=== PATIENT | female | born 1975 | race Hispanic/Latino ===

== ENCOUNTER 2024-03-10 21:11 | Inpatient (IN) | payer BC ==
[~2024-03-10] VITALS: Ht 154.9 cm; Wt 82.2 kg
[2024-03-10 21:50] LABS: SARS-CoV-2, RNA, NAAT NEGATIVE SARS CoV-2 (NEGATIVE)
[2024-03-10 21:56] LABS: INFLUENZA TYPE A Negative For Type A (NEGATIVE); INFLUENZA TYPE B Negative For Type B (NEGATIVE)
[2024-03-10] MEDS: [UNRECOGNIZED DRUG - OTHER] IV ONE (22:02)
[2024-03-10 22:11] LABS: BASOPHILS # (AUTO) 0.02 K/uL (0.00-0.20); BASOPHILS % (AUTO) 0.3 % (0.0-5.0); HEMATOCRIT 32.3 % (36-48); IMMATURE GRANULOCYTE ABSOLUTE 0.02 K/uL (0-1); LYMPHOCYTES # (AUTO) 0.6 K/uL (1.0-4.8); LYMPHOCYTES % (AUTO) 8.9 % (21.0-51.0); MEAN CORPUSCULAR HEMOGLOBIN 26.9 pg (27.0-33.0); MEAN CORPUSCULAR VOLUME 86.8 fL (79-99); MONOCYTES # (AUTO) 0.3 K/uL (0.1-1.0); MONOCYTES % (AUTO) 3.7 % (3.0-13.0); NEUTROPHILS # (AUTO) 6.1 K/uL (1.8-7.7); NEUTROPHILS % (AUTO) 86.8 % (40.0-77.0); PLATELET COUNT (AUTO) 206 K/uL (130-400); RED BLOOD CELL COUNT(AUTO) 3.72 MIL/uL (4.00-5.50); RED CELL DISTRIBUTION WIDTH 15.2 % (11.0-15.5); WHITE BLOOD COUNT (AUTO) 7.1 K/uL (4.8-10.8)
[2024-03-10 22:31] LABS: CREATININE 0.8 mg/dL (0.5-1.0); POTASSIUM 3.4 mmol/L (3.5-5.1)
[2024-03-10 22:51] LABS: RAPID GROUP A STREP positive (NEGATIVE)
[2024-03-10] MEDS: AMOX/CLAV 875/125MG TAB PO SCH (23:14)
--- NOTE | 2024-03-10 23:28 | HMCIMG ---
CHEST 1VW HISTORY: Fever COMPARISON: None FINDINGS: A frontal projection of the chest was obtained. There are bilateral pulmonary infiltrates with left pleural effusion. The heart is normal in size. No evidence of aortic calcification is seen. IMPRESSION: 1. Bilateral pulmonary infiltrates with left pleural effusion.
[2024-03-10] MEDS ORDERED: ceFEPime HCL 1 GM VIAL IVPB SCH (23:30)
--- NOTE | 2024-03-10 23:32 | ERN ---
General Chief Complaint: Sore Throat Stated Complaint: C/O SORE THROAT,COUGH,RUNNY NOSE,N X V X DIARRHEA Time Seen by MD: 21:36 History of Present Illness Initial Comments Mrs Ms. Stafford is a very pleasant 48-year-old female significant past medical history of metastatic breast cancer who recently had a cycle of chemo on 03/05/2024. Patient reports since then she has been feeling sore throat kind of cough, runny nose and diarrhea. She has been experiencing this for several days. Patient was feeling pretty weak. Patient was tachypneic and tachycardic. Allergies: Coded Allergies: No Known Drug Allergies (Unverified Allergy, Unknown, 03/10/24) Past Medical History Past Medical History: Diabetes-Type II, Hypertension, Hypothyroid, Other Medical History Other: STAGE 4 BREAST CA TO LEFT SIDE Past Surgical History: Other Surgical History Other: PORTACATH PLACEMENT RT SIDE OF CHEST ROS Dictation Constitutional: Positive for fever, chills Eyes: Negative for injury, pain,redness, and discharge ENT: Negative for injury,pain or swelling Cardiovascular: Negative for chest pain, palpitations, and edema Respiratory: Positive shortness of breath Abdomen/GI: Negative for abdominal pain, nausea, vomiting, diarrhea, and constipation Back: Negative for injury and pain : Negative for injury, bleeding and discharge MS/Extremity: Negative for injury and deformity Skin: Negative for rash, and discoloration Neuro: Negative for headache, weakness, numbness, tingling, and seizure Psych: Negative for suicide ideation, homicidal ideation, and hallucinations Physical Exam Physical Exam Dictation General: Lethargic female Head/Face: Normocephalic, atraumatic Eyes: PERRL, EOMI, vision at baseline ENT: oral cavity clear Neck: Trachea midline, supple Cardiovascular: Tachycardic Respiratory: CTAB, no respiratory distress, No rales or wheezes Abdomen: Soft, non-tender, non-distended, normal bowel sounds Skin: Warm, dry, normal turgor, no rash MS/Extremity: Pulses equal, no cyanosis Neuro: COAx4, GCS 15, strength 5/5 Psych: Normal behavior, mood, and affect normal Results Laboratory and Microbiology Lab and Micro Result Laboratory Tests Test 03/10/24 21:22 03/10/24 22:02 Influenza Type A Antigen Negative For Type A Influenza Type B Antigen Negative For Type B SARS-CoV-2, RNA, NAAT NEGATIVE SARS CoV-2 Group A Streptococcus Rapid positive (NEGATIVE) *A White Blood Count 7.1 K/uL (4.8-10.8) Red Blood Count 3.72 MIL/uL (4.00-5.50) L Hemoglobin 10.0 g/dL (12.0-16.0) L Hematocrit 32.3 % (36-48) L Mean Corpuscular Volume 86.8 fL (79-99) Mean Corpuscular Hemoglobin 26.9 pg (27.0-33.0) L Mean Corpuscular Hemoglobin Concent 31.0 g/dL (32.0-36.0) L Red Cell Distribution Width 15.2 % (11.0-15.5) Platelet Count 206 K/uL (130-400) Mean Platelet Volume 9.8 fL (7.5-10.5) Immature Granulocyte % (Auto) 0.3 % (0-1) Neutrophils (%) (Auto) 86.8 % (40.0-77.0) H Lymphocytes (%) (Auto) 8.9 % (21.0-51.0) L Monocytes (%) (Auto) 3.7 % (3.0-13.0) Eosinophils (%) (Auto) 0.0 % (0.0-8.0) Basophils (%) (Auto) 0.3 % (0.0-5.0) Neutrophils # (Auto) 6.1 K/uL (1.8-7.7) Lymphocytes # (Auto) 0.6 K/uL (1.0-4.8) L Monocytes # (Auto) 0.3 K/uL (0.1-1.0) Eosinophils # (Auto) 0.00 K/uL (0.00-0.70) Basophils # (Auto) 0.02 K/uL (0.00-0.20) Absolute Immature Granulocyte (auto 0.02 K/uL (0-1) Nucleated Red Blood Cells 0.0 % (0.0-0.19) White Cell Morphology Comment See comments Red Blood Cell Morphology See comments Sodium Level 136 mmol/L (136-145) Potassium Level 3.4 mmol/L (3.5-5.1) L Chloride Level 100 mmol/L (101-111) L Carbon Dioxide Level 32 mmol/L (21-32) Blood Urea Nitrogen 9 mg/dL (7-18) Creatinine 0.8 mg/dL (0.5-1.0) Glomerular Filtration Rate Calc 91 mL/min (>90) Random Glucose 136 mg/dL (70-105) H Lactic Acid Level 1.3 mmol/L (0.8-2.5) Total Calcium 8.9 mg/dL (8.5-10.1) Total Creatine Kinase 75 U/L (21-232) Troponin I High Sensitivity 9 ng/L (4-50) MDM Patient appears to be hypoxic and has a left lower lobe pneumonia. Patient will be admitted for further evaluation and care MDM: Differential diagnosis: Acute hypoxic respiratory failure, pneumonia Rationale: Tests considered and ordered secondary to shared decision making include: labs, ECG and radiology Previous outside records reviewed: Old ER visits. Risk of complication and/or morbidity or mortality of patient management: None Medications-Per medication reconciliation Need for hospitalization: Patient does meet criteria for hospitalization. Need for emergency major/minor surgery: No There are no social concerns with this patient. Prescription drug management Prescriptions will include symptomatic care Patient's prior external medical records from other ER visits were reviewed by me as indicated. Prior testing and results from previous visits were reviewed. Prior tests were taken into account with medical decision making and resource utilization, independent historian/historians were used to obtain complete medical history. I independently interpreted the test that were performed, results were reviewed by me and considered findings on radiology if ordered. Medical management and examination interpretation discussions were had by me with other qualified healthcare professionals as indicated for the patient's care. ED Course Orders Procedure Category Date Status Time Covid Rna Naat LAB 03/10/24 Complete 21:20 Influenza Type A & B, LAB 03/10/24 Complete Rapid 21:20 Rapid (Group A Strep) LAB 03/10/24 Complete 21:20 Cbc With Differential LAB 03/10/24 Complete 21:47 Blood Cult SATNAM 03/10/24 In Process 21:47 Urinalysis Profile LAB 03/10/24 Logged 21:47 Culture Urine SATNAM 03/10/24 Logged 21:47 0.9%Nacl 1000ml (Ns PHA 03/10/24 In Process 1000ml) 22:00 Creatine Kinase, Total LAB 03/10/24 Complete 21:47 Troponin I High LAB 03/10/24 Complete Sensitivity 21:47 Lactic Acid LAB 03/10/24 Complete 21:47 Basic Metabolic Panel LAB 03/10/24 Complete 21:47 Amox/Clav 875/125mg PHA 03/10/24 Complete Tab (Augmentin 875-1 23:00 Chest 1vw RAD 03/10/24 Resulted 23:12 Cefepime Hcl 1 Gm PHA 03/10/24 In Process Vial (Maxipime 1 Gm Vi 23:30 Vancomycin 1g/250ml PHA 03/10/24 Complete Kit (Vancomycin 1g/2 23:30 Cefepime Hcl 1 Gm PHA 03/11/24 In Process Vial (Maxipime 1 Gm Vi 00:00 Current Medications Medications (Trade) Dose Ordered Sig/Marisol Route PRN Reason Start Time Stop Time Status Last Admin Dose Admin Amoxicillin/ Clavulanate Potassium (Augmentin 875-125 Tablet) 1 each Q12H PO 03/10/24 23:00 03/10/24 23:25 DC Cefepime HCl (MAXipime 1 GM vial) 1 gm ONCE ONCE IVPB 03/11/24 00:00 03/11/24 00:01 03/10/24 23:50 Cefepime HCl (MAXipime 1 GM vial) 1 gm Q8H IVPB 03/10/24 23:30 03/20/24 23:29 Sodium Chloride 2,421 ml @ 807 mls/hr ONCE ONCE IV 03/10/24 22:00 03/11/24 00:59 03/10/24 22:02 Vancomycin HCl (Vancomycin 1g/ 250ml Kit) 1 gm ONCE ONCE IV 03/10/24 23:30 03/10/24 23:31 DC Vital Signs Date Time Temp Pulse Resp B/P (MAP) Pulse Ox O2 Delivery O2 Flow Rate FiO2 03/10/24 22:08 111 18 133/76 96 Room Air* 0 21 03/10/24 21:14 100.2 115 20 130/79 93 Room Air DX & DISP Disposition: Inpatient Departure Impression: Primary Impression: Pneumonia Condition: Stable Referrals: SELF,REFERRAL (PCP) HINA ANTOINE MD Mar 10, 2024 23:32
[2024-03-10] MEDS: ceFEPime HCL 1 GM VIAL IVPB ONE (23:50)
[2024-03-11] VITALS (12 sets, daily range): BP systolic 110–117; BP diastolic 65–76; PULSE 75–117; RESP 18–21; TEMP 97.8–100.5; O2SAT 86–95
[2024-03-11] MEDS: VANCOMYCIN KIT 1 GM/250 ML IV.KIT IV ONE (00:18)
--- NOTE | 2024-03-11 01:22 | HP ---
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 Patient states her oncologist is Dr. Antonio Sahni at [facility]. Seen and examined patient in the ED awake,alert and coherent,appears comfortable complained of mild shortness of breath .Patient denies chest pain,palpitation and abdominal pain.. Latest vital signs temperature 100.2, heart rate 109, blood pressure 117/57, saturation 91% at 2 L nasal cannula. Labs: WBC 7.1, neutrophils 86.8, hemoglobin 10, hematocrit 32.3, platelet count 206. potassium 3.4, chloride 100, glucose 136, troponin nine. Influenza A & B negative,, SARs COVID negative rapid strep positive. Chest x-ray result revealed bilateral pulmonary infiltrates with left pleural effusion. While in the ER patient received cefepime 1 g IV, vancomycin 1 g IV and fluid re suscitation 30 mL/kilogram over 3 hours. We will admit patient for further medical management. REVIEW OF SYSTEMS CONSTITUTIONAL: Positive chills and generalized weakness Denies fevers, night sweats. No unintentional weight loss reported. NEUROLOGICAL: Denies headache, amaurosis fugax, motor weakness, sensory def icit, vertigo/spinning sensation, gait abnormalities, or tremors. ENT: Positive sore throat No hearing loss, otalgia, otorrhea, rhinitis, rhinorrhea, hoarseness, CARDIOVASCULAR: Denies any exertional angina, dyspnea on exertion, orthopnea, paroxysmal nocturnal dyspnea, palpitations, life-threatening arrhythmias, claudication. PULMONARY: Positive shortness of breath with productive cough Denies hemoptysis, pleuritic chest pain. SLEEP: Denies morning headaches, daytime somnolence or napping. Denies difficulty falling asleep, staying asleep, waking from sleep. Denies knowledge of snoring. GASTROINTESTINAL: Complained of Nausea vomiting and diarrhea Denies any type of dysphagia to either liquids or solids. Denies nausea, vomiting, pyrosis, early satiety, abdominal pain, diarrhea, constipation, or changes in stool consistency or caliber. Denies coffee-ground emesis, hematemesis, hematochezia, or melanotic stools. GENITOURINARY: Denies frequency, urgency, nocturia, hematuria or incontinence (Storage/Irritative symptoms.) Low urinary stream, straining to void, urinary intermittency or hesitancy, splitting of the voiding stream, terminal dribbling. ENDOCRINOLOGIC: Denies polyuria, polydipsia, polyphagia or heat/cold intolerances. HEMATOLOGIC: Denies thrombophilia/previous clots, or coagulopathy/bleeding disorders. ONCOLOGIC: Denies personal history of malignancy. DERMATOLOGIC: Denies rashes or pruritus. PSYCHIATRIC: Denies any suicidal or homicidal ideation. Denies hallucinations. PAST MEDICAL HISTORY: [ metastatic breast cancer (on the 7th cycle of chemo treatment on 03/05/2024) ,hypothyroidism,diabetes not on medication,hypertension and obesity ] PAST SURGICAL HISTORY: [ Port-A-Cath inserted on October 24, 2023 ] PAST SOCIAL HISTORY: [ Patient lives with [place]. 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 Patient denies alcohol tobacco and recreational drug use. ] FAMILY HISTORY: [Noncontributory ] Coded Allergies: No Known Drug Allergies (Unverified Allergy, Unknown, 03/10/24) PHYSICAL EXAM GENERAL APPEARANCE: The patient is awake, alert, and oriented, in no acute cardiopulmonary distress. NEUROLOGICAL: Cranial nerves II-XII grossly intact. Motor is 5/5 in bilateral upper and lower extremities proximal to distal. No sensory deficits. HEENT: Face is symmetric. Pupils are equal and reactive. Extraocular movements are intact. NECK: Supple. No JVD. No thyromegaly. No submental, submandibular, pre- /postauricular, occipital or supraclavicular lymphadenopathy. CHEST: Normal chest expansion. No Telemetry. LUNGS: Tachypneic Absence of any rales, rhonchi or any wheezing. CARDIOVASCULAR: Tachycardic S1 and S2 normal. No appreciable rubs, murmurs or gallops. ABDOMEN: Soft, nontender, and nondistended. There is no rebound, voluntary guarding, or rigidity. : Deferred. No Davis. EXTREMITIES: Non-edematous and not cyanotic. No clubbing. Good capillary refill. SKIN: No skin breakdown. Vital Sign (Last 24 Hours) 03/10/24 03/11/24 21:14 00:47 Temp 100.2 Pulse 109 Resp 20 B/P (MAP) 117/57 Pulse Ox 91 O2 Delivery Nasal Cannula* O2 Flow Rate 2 FiO2 28 LABS: Laboratory: Test 03/10/24 22:02 03/10/24 21:22 Range/Units White Blood Count 7.1 4.8-10.8 K/uL Red Blood Count 3.72 L 4.00-5.50 MIL/uL Hemoglobin 10.0 L 12.0-16.0 g/dL Hematocrit 32.3 L 36-48 % Mean Corpuscular Volume 86.8 79-99 fL Mean Corpuscular Hemoglobin 26.9 L 27.0-33.0 pg Mean Corpuscular Hemoglobin Concent 31.0 L 32.0-36.0 g/dL Red Cell Distribution Width 15.2 11.0-15.5 % Platelet Count 206 130-400 K/uL Mean Platelet Volume 9.8 7.5-10.5 fL Immature Granulocyte % (Auto) 0.3 0-1 % Neutrophils (%) (Auto) 86.8 H 40.0-77.0 % Lymphocytes (%) (Auto) 8.9 L 21.0-51.0 % Monocytes (%) (Auto) 3.7 3.0-13.0 % Eosinophils (%) (Auto) 0.0 0.0-8.0 % Basophils (%) (Auto) 0.3 0.0-5.0 % Neutrophils # (Auto) 6.1 1.8-7.7 K/uL Lymphocytes # (Auto) 0.6 L 1.0-4.8 K/uL Monocytes # (Auto) 0.3 0.1-1.0 K/uL Eosinophils # (Auto) 0.00 0.00-0.70 K/uL Basophils # (Auto) 0.02 0.00-0.20 K/uL Absolute Immature Granulocyte (auto 0.02 0-1 K/uL Nucleated Red Blood Cells 0.0 0.0-0.19 % White Cell Morphology Comment See comments Red Blood Cell Morphology See comments Sodium Level 136 136-145 mmol/L Potassium Level 3.4 L 3.5-5.1 mmol/L Chloride Level 100 L 101-111 mmol/L Carbon Dioxide Level 32 21-32 mmol/L Blood Urea Nitrogen 9 7-18 mg/dL Creatinine 0.8 0.5-1.0 mg/dL Glomerular Filtration Rate Calc 91 >90 mL/min Random Glucose 136 H 70-105 mg/dL Lactic Acid Level 1.3 0.8-2.5 mmol/L Total Calcium 8.9 8.5-10.1 mg/dL Total Creatine Kinase 75 21-232 U/L Troponin I High Sensitivity 9 4-50 ng/L Influenza Type A Antigen Negative For Type A NEGATIVE Influenza Type B Antigen Negative For Type B NEGATIVE SARS-CoV-2, RNA, NAAT NEGATIVE SARS CoV-2 NEGATIVE Group A Streptococcus Rapid positive *A NEGATIVE Current Medications Medications (Trade) Dose Ordered Sig/Marisol Route PRN Reason Start Time Stop Time Status Last Admin Dose Admin Amoxicillin/ Clavulanate Potassium (Augmentin 875-125 Tablet) 1 each Q12H PO 03/10/24 23:00 03/10/24 23:25 DC Cefepime HCl (MAXipime 1 GM vial) 1 gm Q8H IVPB 03/10/24 23:30 03/20/24 23:29 DIAGNOSTICS / RADIOLOGY: [ ] ASSESSMENT: Acute respiratory failure with hypoxia POA Sirs with organ dysfunction POA Suspected pneumonia with left pleural effusion POA Positive strep throat POA Hypokalemia POA Acute anemia POA Hypothyroidism POA Hypertension POA Diabetes POA History of metastatic breast cancer with recent chemotherapy POA PLAN: We will admit patient in PCCU We will start on clear liquid diet/keep NPO We will continue cefepime and vancomycin for broad-spectrum coverage We will start on NS at 100 mL/hour and re-evaluate We will start famotidine 20 mg IV b.i.d. for GI prophylaxis We will replace electrolytes as needed per protocol We will start sliding scale insulin per protocol with hypoglycemia protocol May use oxygen supplementation to keep saturation above 92% May start DuoNeb treatment every 4 hours for shortness of breaths We will seek pulmonology consultation We will check labs in a.m. Further recommendations to follow depending upon hospitalization course ADVANCED CARE PLANNING 1. Which of the following were discussed? Hospice Care - No Therapeutic options - Yes Advance Directives - No Other discussions - 2. Discussed with who? Patient 3. Voluntary nature of this service was explained to the patient? Yes 4. Amount of time spent - _20__ 5. Reviewed by Physician? (if this service was performed by NPP) Yes Patient seen and examined by me. Agree with note by OUTBOUND SALES PROFESSIONAL SEE ADDITIONAL ORDERS PER CHART DISCUSSED WITH NURSING STAFF REG BRINK GROCERY WORKER Mar 11, 2024 01:22
[2024-03-11] MEDS ORDERED: ondanSETRON 4MG INJ IV PRN (03:00)
[2024-03-11] MEDS ORDERED: VANCOMYCIN PROTOCOL PER PHARMACY IV SCH (03:00)
[2024-03-11] MEDS ORDERED: guaiFENesin-DM 200/20MG 10ML PO PRN (03:00)
[2024-03-11] MEDS ORDERED: HYDROcodone/APAP 5/325 1 TAB TABLET PO PRN (03:00)
[2024-03-11] MEDS: VANCOMYCIN 1G/250ML KIT 250 ML IV SCH (03:00)
[2024-03-11] MEDS: ceFEPime HCL 1 GM VIAL IVPB SCH (03:00)
[2024-03-11] MEDS ORDERED: acetaMINOPHEN 325 MG TAB PO PRN (03:00)
[2024-03-11] MEDS: acetaMINOPHEN 325 MG TAB PO PRN (04:16)
[2024-03-11] MEDS ORDERED: LEVO50TA4 PO (04:28)
[2024-03-11 05:28] LABS: BASOPHILS # (AUTO) 0.02 K/uL (0.00-0.20); BASOPHILS % (AUTO) 0.3 % (0.0-5.0); HEMATOCRIT 28.7 % (36-48); IMMATURE GRANULOCYTE ABSOLUTE 0.01 K/uL (0-1); LYMPHOCYTES # (AUTO) 0.5 K/uL (1.0-4.8); LYMPHOCYTES % (AUTO) 7.6 % (21.0-51.0); MEAN CORPUSCULAR HEMOGLOBIN 26.8 pg (27.0-33.0); MEAN CORPUSCULAR VOLUME 86.4 fL (79-99); MONOCYTES # (AUTO) 0.3 K/uL (0.1-1.0); MONOCYTES % (AUTO) 4.8 % (3.0-13.0); NEUTROPHILS % (AUTO) 87.2 % (40.0-77.0); PLATELET COUNT (AUTO) 194 K/uL (130-400); RED BLOOD CELL COUNT(AUTO) 3.32 MIL/uL (4.00-5.50); RED CELL DISTRIBUTION WIDTH 15.2 % (11.0-15.5); WHITE BLOOD COUNT (AUTO) 6.9 K/uL (4.8-10.8)
[2024-03-11 05:50] LABS: ALBUMIN 2.5 g/dL (3.5-5.0); CREATININE 0.8 mg/dL (0.5-1.0); MAGNESIUM 1.5 mg/dL (1.80-2.40); POTASSIUM 3.9 mmol/L (3.5-5.1); TOTAL PROTEIN, SERUM 5.7 g/dL (6.0-8.3)
[2024-03-11 06:07] LABS: HEMOGLOBIN A1C 5.5 % (4.0-6.0)
[2024-03-11] MEDS: IpraTROPium/alBUTERol SULFATE 3 ML SOLUTION IH SCH (06:56)
--- NOTE | 2024-03-11 08:59 | CONS ---
[facility] CONSULTATION NOTE Date Patient Seen: Mar 11, 2024 Time of Visit: 08:49 Supervising Physician: MU URIAS MD Reason for Consultation: [SOB Outpatient Specialists: MD MCMAHAN PROBLEM LIST: Sepsis, present on admission Acute hypoxemic respiratory failure, not home o2 dependent CAP Streptococcus pharyngitis Metastatic Breast CA on Chemotherapy Immunocompromised status DM II HTN Hypothyroidism HPI: This is a case of a48 woman with a past history metastatic breast cancer currently on chemotherapy at [facility] that presented secondary to sore throat, cough chills, subjective fever with nausea vomiting and loose stools over course of the last five days. The patient was become progressively weak and as a result decided to seek further medical care. Patient reports productive cough with green sputum with rhinorrhea. During evaluation she was tachypneic, hypoxic and tachycardic with a white blood cell count that is not elevated due to her immunocompromised state but does have a left shift consistent sepsis. She had a chest x-ray revealing bilateral pulmonary infiltrates and a positive rapid strep test. Our services has been consulted given her hypoxemia shortness of breath and pneumonia. At this time the patient has been started on cefepime and vancomycin. Continues significantly weak. CXR was reviewed in detail and Left lower lobe infiltrate is noted and a sputum culture will be obtained . Given her Elevated wells score of we will proceed with evaluating her for superimposed PE/DVT . PAST MEDICAL HX: see above PAST SURGICAL HX: noncontributory SOCIAL HISTORY: No tobacco, ETOH, or illicit drug use Coded Allergies: No Known Drug Allergies (Unverified Allergy, Unknown, 03/10/24) REVIEW OF SYSTEMS: 12 point ROS reviewed with patient. Pertinent positives mentioned above. Otherwise negative. PHYSICAL EXAM: GENERAL: alert, weak, awake oriented x 3 HEENT: EOMI, Sclera non icteric, moist mucosa NECK: Supple, no JVD, trachea midline LUNGS: fair entry, bibasilar crackles ,no wheezing HEART: Regular rate and rhythm. Normal S1 and S2, without murmurs ABD: Abdomen soft, nontender. Bowel sounds present EXT: No clubbing cyanosis or edema NEURO: Alert and oriented to person, follows commands Vital Signs (last 8hr) Date Time Temp Pulse Resp B/P (MAP) Pulse Ox O2 Delivery O2 Flow Rate FiO2 03/11/24 07:27 100 19 105/65 94 Nasal Cannula* 2 28 03/11/24 07:01 97 20 N/Cannula Low lpm 2.0 03/11/24 06:57 97 20 03/11/24 06:01 99.5 100 23 115/52 93 Nasal Cannula* 2 28 03/11/24 05:21 100.6 10 22 107/59 93 Nasal Cannula* 2 28 03/11/24 04:16 102.9 03/11/24 04:14 102.9 112 22 116/64 92 Nasal Cannula* 2 03/11/24 03:11 117 20 N/Cannula Low lpm 2.0 28 LABS: Hematology Labs: Test 03/11/24 05:21 03/10/24 22:02 Range/Units White Blood Count 6.9 4.8-10.8 K/uL Red Blood Count 3.32 L 4.00-5.50 MIL/uL Hemoglobin 8.9 L 12.0-16.0 g/dL Hematocrit 28.7 L 36-48 % Mean Corpuscular Volume 86.4 79-99 fL Mean Corpuscular Hemoglobin 26.8 L 27.0-33.0 pg Mean Corpuscular Hemoglobin Concent 31.0 L 32.0-36.0 g/dL Red Cell Distribution Width 15.2 11.0-15.5 % Platelet Count 194 130-400 K/uL Mean Platelet Volume 9.6 7.5-10.5 fL Immature Granulocyte % (Auto) 0.1 0-1 % Neutrophils (%) (Auto) 87.2 H 40.0-77.0 % Lymphocytes (%) (Auto) 7.6 L 21.0-51.0 % Monocytes (%) (Auto) 4.8 3.0-13.0 % Eosinophils (%) (Auto) 0.0 0.0-8.0 % Basophils (%) (Auto) 0.3 0.0-5.0 % Neutrophils # (Auto) 6.0 1.8-7.7 K/uL Lymphocytes # (Auto) 0.5 L 1.0-4.8 K/uL Monocytes # (Auto) 0.3 0.1-1.0 K/uL Eosinophils # (Auto) 0.00 0.00-0.70 K/uL Basophils # (Auto) 0.02 0.00-0.20 K/uL Absolute Immature Granulocyte (auto 0.01 0-1 K/uL Nucleated Red Blood Cells 0.0 0.0-0.19 % White Cell Morphology Comment See comments Red Blood Cell Morphology See comments Chemistry Labs: Test 03/11/24 05:21 03/10/24 22:02 Range/Units Sodium Level 138 136-145 mmol/L Potassium Level 3.9 3.5-5.1 mmol/L Chloride Level 103 101-111 mmol/L Carbon Dioxide Level 28 21-32 mmol/L Blood Urea Nitrogen 8 7-18 mg/dL Creatinine 0.8 0.5-1.0 mg/dL Glomerular Filtration Rate Calc 91 >90 mL/min Random Glucose 135 H 70-105 mg/dL Hemoglobin A1c 5.5 4.0-6.0 % Estimated Average Glucose (eAG) 111 70-126 mg/dL Lactic Acid Level 1.2 0.8-2.5 mmol/L Total Calcium 8.5 8.5-10.1 mg/dL Magnesium Level 1.50 L 1.80-2.40 mg/dL Total Bilirubin 1.0 0.2-1.0 mg/dL Aspartate Amino Transf (AST/SGOT) 13 10-37 U/L Alanine Aminotransferase (ALT/SGPT) 15 12-78 U/L Alkaline Phosphatase 98 50-136 U/L Total Protein 5.7 L 6.0-8.3 g/dL Albumin 2.5 L 3.5-5.0 g/dL Procalcitonin 0.76 H 0.05-0.5 ng/mL Total Creatine Kinase 75 21-232 U/L Troponin I High Sensitivity 9 4-50 ng/L DIAGNOSTICS / RADIOLOGY RESULTS: CHEST 1VW HISTORY: Fever COMPARISON: None FINDINGS: A frontal projection of the chest was obtained. There are bilateral pulmonary infiltrates with left pleural effusion. The heart is normal in size. No evidence of aortic calcification is seen. IMPRESSION: 1. Bilateral pulmonary infiltrates with left pleural effusion. PULMONARY PLAN: CTA of chest , Venous doppler Atrovent, Pulmicort, CPT. Aggressive pulmonary toileting Antibiotic therapy with Vanco and Cefepime , obtain Sputum culture CXR in AM/ ABG now on room air Supplemental 02 as needed. Will require home 02 assessment prior to dc Will also obtain an echocardiogram to further asses her LVEF Maintain aspiration precautions at all times ORTHO/REHAB: Continue PT/OT Prophylaxis: Continue GI and DVT prophylaxis Code Status: Full Resuscitation Disposition: per primar team Other: Total patient care time exceeds 35 minutes excluding all procedures. MARILIN RICHARD Mar 11, 2024 08:59
--- NOTE | 2024-03-11 09:37 | HMCIMG ---
US VENOUS DOPPLER BILATERAL HISTORY: DVT COMPARISON: None TECHNIQUE: Bilateral lower extremity venous Doppler ultrasound study was performed. FINDINGS: The common femoral, femoral, popliteal, and posterior tibial veins are visualized. Normal flow with augmentation and compressibilities are demonstrated. The greater saphenous veins are also seen and grossly patent. IMPRESSION: 1. No evidence of deep venous thrombosis is seen.
[2024-03-11] MEDS: FAMOTIDINE 20MG TAB PO SCH (09:42)
[2024-03-11] MEDS: ENOXAPARIN SODIUM 40 MG/0.4 ML SYRINGE SQ SCH (09:42)
[2024-03-11] MEDS ORDERED: IOHEXOL-350 75 ML VIAL IV ONE ×3 (10:21→13:26)
[2024-03-11] MEDS: BUDESONIDE 0.5 MG/2 ML INH IH SCH (11:45)
[2024-03-11] MEDS: IpraTROPium 0.5 MG/2.5 ML INH IH SCH (11:45)
[2024-03-11] MEDS: SODIUM CHLORIDE 3% FOR INHALATION 4 ML/AMP VIAL.NEB IH ONE (11:57)
--- NOTE | 2024-03-11 14:17 | HMCIMG ---
CT CHEST PE PROTOCOL WWO CONT HISTORY: No additional history given. COMPARISON: None TECHNIQUE: CT angiography of the chest was performed. The study was performed using angiographic technique with maximum intensity projection reconstruction images. Patient was given 150 cc of Omnipaque through intravenous route. FINDINGS: No CT evidence of filling defect is seen to suggest pulmonary embolus. No CT evidence of aortic dissection is seen. There are bilateral pulmonary infiltrates with subsegmental atelectasis. Superimposed lung nodule cannot be excluded. Follow-up examination is recommended. There are borderline mediastinal adenopathy. No CT evidence of pleural effusion or pericardial effusion is seen. The heart is enlarged. No evidence of adrenal mass is seen. Degenerative changes of the spine are noted. IMPRESSION: 1. No CT evidence of acute pulmonary embolus is seen. There are bilateral pulmonary infiltrates with subsegmental atelectasis. Superimposed lung nodule cannot be excluded. Follow-up examination is recommended. There are borderline mediastinal adenopathy. CT was performed with one or more following dose reduction techniques: automated exposure control, adjustment of the mA and kv according to patient's size, or use of a iterative reconstruction technique.
[2024-03-11] MEDS ORDERED: VANCOMYCIN 1.25 GM/250 ML BAG 250 ML IV SCH (15:00)
[2024-03-11 20:58] LABS: APPEARANCE,URINE CLEAR (CLEAR); BILIRUBIN,URINE NEGATIVE (NEGATIVE); COLOR,URINE LIGHT-YELLOW (YELLOW); GLUCOSE, URINE (UA) NEGATIVE (NEGATIVE); KETONES,URINE NEGATIVE (NEGATIVE); LEUKOCYTE ESTERASE ,URINE 25 Leu/uL (NEGATIVE); NITRATE,URINE NEGATIVE (NEGATIVE); OCCULT BLOOD,URINE NEGATIVE (NEGATIVE); PROTEIN,URINE NEGATIVE (NEGATIVE); UROBILINOGEN,URINE 0.2 mg/dL (0.2-1.0)
[2024-03-11 21:02] LABS: ADD UA MICROSCOPIC YES
[2024-03-11 21:12] LABS: RBC,URINE 0-1 /HPF (0-1); SQUAMOUS EPITHELIAL CELL,UR RARE /HPF (0-2)
[2024-03-12] VITALS (12 sets, daily range): BP systolic 108–119; BP diastolic 65–72; PULSE 95–106; RESP 18–22; TEMP 98.1–98.9; O2SAT 92–98
[2024-03-12] MEDS ORDERED: MAGNESIUM 2GM PREMIX 50ML 50 ML IV PRN (03:30)
[2024-03-12 04:45] LABS: HEMATOCRIT 26.8 % (36-48); MEAN CORPUSCULAR VOLUME 87.3 fL (79-99); RED BLOOD CELL COUNT(AUTO) 3.07 MIL/uL (4.00-5.50); RED CELL DISTRIBUTION WIDTH 15.1 % (11.0-15.5); WHITE BLOOD COUNT (AUTO) 10.5 K/uL (4.8-10.8)
[2024-03-12 04:57] LABS: CREATININE 0.7 mg/dL (0.5-1.0)
--- NOTE | 2024-03-12 09:48 | PN ---
[facility] PROGRESS NOTE Date of Service: Mar 12, 2024 Time of Service: 09:35 SUBJECTIVE: [ 48-year-old female admitted for shortness of breaths secondary to pneumonia. Patient was hypoxic when she arrived in the ED. She is currently on 2 L via nasal cannula with saturation at 91%. Patient is immunocompromised due to history of breast cancer to the left side and currently on chemotherapy. We have consulted hopper operator and Infectious Disease for further recommendations. Patient was evaluated in room 331, she is currently afebrile. Labs reviewed. CT chest was negative for PE but noted bilateral pulmonary infiltrates superimposed lung nodule can not be excluded. Chest x-ray did show bilateral pulmonary infiltrates with left pleural effusion. We will continue to follow recommendations from hopper operator. ] REVIEW OF SYSTEMS CONSTITUTIONAL: Positive chills and generalized weakness Denies fevers, night sweats. No unintentional weight loss reported. NEUROLOGICAL: Denies headache, amaurosis fugax, motor weakness, sensory deficit, vertigo/spinning sensation, gait abnormalities, or tremors. ENT: Positive sore throat No hearing loss, otalgia, otorrhea, rhinitis, rhinorrhea, hoarseness, CARDIOVASCULAR: Denies any exertional angina, dyspnea on exertion, orthopnea, paroxysmal nocturnal dyspnea, palpitations, life-threatening arrhythmias, claudication. PULMONARY: Positive shortness of breath with productive cough Denies hemoptysis, pleuritic chest pain. SLEEP: Denies morning headaches, daytime somnolence or napping. Denies difficulty falling asleep, staying asleep, waking from sleep. Denies knowledge of snoring. GASTROINTESTINAL: Complained of Nausea vomiting and diarrhea Denies any type of dysphagia to either liquids or solids. Denies nausea, vomiting, pyrosis, early satiety, abdominal pain, diarrhea, constipation, or changes in stool consistency or caliber. Denies coffee-ground emesis, hematemesis, hematochezia, or melanotic stools. GENITOURINARY: Denies frequency, urgency, nocturia, hematuria or incontinence (Storage/Irritative symptoms.) Low urinary stream, straining to void, urinary intermittency or hesitancy, splitting of the voiding stream, terminal dribbling. ENDOCRINOLOGIC: Denies polyuria, polydipsia, polyphagia or heat/cold intolerances. HEMATOLOGIC: Denies thrombophilia/previous clots, or coagulopathy/bleeding disorders. ONCOLOGIC: Denies personal history of malignancy. DERMATOLOGIC: Denies rashes or pruritus. PSYCHIATRIC: Denies any suicidal or homicidal ideation. Denies hallucinations. PHYSICAL EXAM GENERAL APPEARANCE: The patient is awake, alert, and oriented, in no acute cardiopulmonary distress. NEUROLOGICAL: Cranial nerves II-XII grossly intact. Motor is 5/5 in bilateral upper and lower extremities proximal to distal. No sensory deficits. HEENT: Face is symmetric. Pupils are equal and reactive. Extraocular movements are intact. NECK: Supple. No JVD. No thyromegaly. No submental, submandibular, pre- /postauricular, occipital or supraclavicular lymphadenopathy. CHEST: Normal chest expansion. No Telemetry. LUNGS: Tachypneic Absence of any rales, rhonchi or any wheezing. CARDIOVASCULAR: Tachycardic S1 and S2 normal. No appreciable rubs, murmurs or gallops. ABDOMEN: Soft, nontender, and nondistended. There is no rebound, voluntary guarding, or rigidity. : Deferred. No Davis. EXTREMITIES: Non-edematous and not cyanotic. No clubbing. Good capillary refill. SKIN: No skin breakdown. Vital Signs (last 8hr) Date Time Temp Pulse Resp B/P (MAP) Pulse Ox O2 Delivery O2 Flow Rate FiO2 03/12/24 08:00 98.1 102 20 119/65 92 Nasal Cannula 2.0 03/12/24 07:35 106 20 N/Cannula Low lpm 2.0 28 03/12/24 07:21 104 20 03/12/24 04:02 98.8 99 18 112/71 95 Nasal Cannula 1.0 LABS: Laboratory: Test 03/12/24 04:35 03/11/24 20:32 03/11/24 05:21 03/10/24 22:02 Range/Units White Blood Count 10.5 # 4.8-10.8 K/uL Red Blood Count 3.07 L 4.00-5.50 MIL/uL Hemoglobin 8.3 L 12.0-16.0 g/dL Hematocrit 26.8 L 36-48 % Mean Corpuscular Volume 87.3 79-99 fL Mean Corpuscular Hemoglobin 27.0 27.0-33.0 pg Mean Corpuscular Hemoglobin Concent 31.0 L 32.0-36.0 g/dL Red Cell Distribution Width 15.1 11.0-15.5 % Platelet Count 187 130-400 K/uL Mean Platelet Volume 9.6 7.5-10.5 fL Nucleated Red Blood Cells 0.0 0.0-0.19 % Sodium Level 140 136-145 mmol/L Potassium Level 4.0 3.5-5.1 mmol/L Chloride Level 104 101-111 mmol/L Carbon Dioxide Level 30 21-32 mmol/L Blood Urea Nitrogen 6 L 7-18 mg/dL Creatinine 0.7 0.5-1.0 mg/dL Glomerular Filtration Rate Calc 107 >90 mL/min Random Glucose 99 70-105 mg/dL Total Calcium 8.8 8.5-10.1 mg/dL Urine Color LIGHT-YELLOW YELLOW Urine Appearance CLEAR CLEAR Urine pH 6.0 5.0-8.0 Urine Specific [place] 1.034 H 1.001-1.031 Urine Protein NEGATIVE NEGATIVE mg/dL Urine Glucose (UA) NEGATIVE NEGATIVE mg/dL Urine Ketones NEGATIVE NEGATIVE mg/dL Urine Occult Blood NEGATIVE NEGATIVE Urine Nitrate NEGATIVE NEGATIVE Urine Bilirubin NEGATIVE NEGATIVE mg/dL Urine Urobilinogen 0.2 0.2-1.0 mg/dL Urine Leukocyte Esterase 25 H NEGATIVE Deshaun/uL Urine RBC 0-1 0-1 /HPF Urine WBC 2-5 H 0-1 /HPF Urine Squamous Epithelial Cells RARE 0-2 /HPF Urine Bacteria None None Seen /HPF Immature Granulocyte % (Auto) 0.1 0-1 % Neutrophils (%) (Auto) 87.2 H 40.0-77.0 % Lymphocytes (%) (Auto) 7.6 L 21.0-51.0 % Monocytes (%) (Auto) 4.8 3.0-13.0 % Eosinophils (%) (Auto) 0.0 0.0-8.0 % Basophils (%) (Auto) 0.3 0.0-5.0 % Neutrophils # (Auto) 6.0 1.8-7.7 K/uL Lymphocytes # (Auto) 0.5 L 1.0-4.8 K/uL Monocytes # (Auto) 0.3 0.1-1.0 K/uL Eosinophils # (Auto) 0.00 0.00-0.70 K/uL Basophils # (Auto) 0.02 0.00-0.20 K/uL Absolute Immature Granulocyte (auto 0.01 0-1 K/uL Hemoglobin A1c 5.5 4.0-6.0 % Estimated Average Glucose (eAG) 111 70-126 mg/dL Lactic Acid Level 1.2 0.8-2.5 mmol/L Magnesium Level 1.50 L 1.80-2.40 mg/dL Total Bilirubin 1.0 0.2-1.0 mg/dL Aspartate Amino Transf (AST/SGOT) 13 10-37 U/L Alanine Aminotransferase (ALT/SGPT) 15 12-78 U/L Alkaline Phosphatase 98 50-136 U/L Total Protein 5.7 L 6.0-8.3 g/dL Albumin 2.5 L 3.5-5.0 g/dL Procalcitonin 0.76 H 0.05-0.5 ng/mL White Cell Morphology Comment See comments Red Blood Cell Morphology See comments Total Creatine Kinase 75 21-232 U/L Troponin I High Sensitivity 9 4-50 ng/L Test 03/10/24 21:22 Range/Units Influenza Type A Antigen Negative For Type A NEGATIVE Influenza Type B Antigen Negative For Type B NEGATIVE SARS-CoV-2, RNA, NAAT NEGATIVE SARS CoV-2 NEGATIVE Group A Streptococcus Rapid positive *A NEGATIVE Current Medications Medications (Trade) Dose Ordered Sig/Marisol Route PRN Reason Start Time Stop Time Status Last Admin Dose Admin Acetaminophen (TYLenol 325MG TAB) 650 mg Q4H PRN PO MILD PAIN (1-3) 03/11/24 03:00 04/10/24 02:59 Acetaminophen (TYLenol 325MG TAB) 650 mg Q6H PRN PO TEMPERATURE GREATER THAN 101.5 03/11/24 03:00 04/10/24 02:59 03/11/24 04:16 650 MG Acetaminophen/ Hydrocodone Bitart (NORco 5/325MG) 1 tab Q4H PRN PO MODERATE PAIN (4-6) 03/11/24 03:00 03/16/24 02:59 Albuterol (DUOneb) 1 udvial [id number] IH 03/11/24 06:00 03/11/24 09:24 DC 03/11/24 06:56 1 UDVIAL Amoxicillin/ Clavulanate Potassium (Augmentin 875-125 Tablet) 1 each Q12H PO 03/10/24 23:00 03/10/24 23:25 DC Budesonide (Pulmicort 0.5 Mg/2ml) 0.5 mg BID IH 03/11/24 09:00 04/10/24 08:59 03/12/24 07:21 0.5 MG Cefepime HCl (MAXipime 1 GM vial) 1 gm Q8H IVPB 03/10/24 23:30 03/11/24 02:56 DC Cefepime HCl (MAXipime 1 GM vial) 1 gm Q8H IVPB 03/11/24 03:00 03/21/24 02:59 03/12/24 03:37 1 GM Enoxaparin Sodium (Lovenox) 40 mg DAILY SQ 03/11/24 09:00 04/10/24 08:59 03/12/24 09:08 40 MG Famotidine (Pepcid 20mg Tab) 20 mg BID PO 03/11/24 09:00 04/10/24 08:59 03/12/24 09:08 20 MG Guaifenesin/ Dextromethorphan (RobiTUSSin DM 200/20MG 10ML) 10 ml Q4H PRN PO COUGH 03/11/24 03:00 04/10/24 02:59 Ipratropium [place] (AtrovENT UD) 0.5 mg Q6H IH 03/11/24 09:00 04/10/24 08:59 03/12/24 07:21 0.5 MG Magnesium Sulfate 50 ml @ 0 mls/hr PROTOCOL PRN IV MAGNESIUM PROTOCOL 03/12/24 03:30 04/11/24 03:29 Ondansetron HCl (zoFRAN 4MG INJ) 4 mg Q6H PRN IV NAUSEA/VOMITING 03/11/24 03:00 04/10/24 02:59 Vancomycin HCl 250 ml @ 125 mls/hr ONCE IV 03/11/24 03:00 03/11/24 04:59 DC Vancomycin HCl 250 ml @ 125 mls/hr Q12H IV 03/11/24 15:00 03/11/24 09:07 DC Vancomycin HCl (Vancomycin Protocol) 1 each AD IV 03/11/24 03:00 03/11/24 03:09 DC DIAGNOSTICS / RADIOLOGY: [ ] ASSESSMENT: Acute respiratory failure with hypoxia POA Sirs with organ dysfunction POA Suspected pneumonia with left pleural effusion POA Positive strep throat POA Hypokalemia POA Acute anemia POA Hypothyroidism POA Hypertension POA Diabetes POA History of metastatic breast cancer with recent chemotherapy POA PLAN: Patient will continued to be admitted with telemetry Patient will continue with clear liquid diet We will continue cefepime and vancomycin for broad-spectrum coverage, we will await for further recommendations from ID Continue with gentle IV fluid hydration We will continue with famotidine 20 mg IV b.i.d. for GI prophylaxis We will continue to replace electrolytes as needed per protocol We continue sliding scale insulin per protocol with hypoglycemia protocol Continue oxygen supplementation to keep saturation above 92% Continue DuoNeb treatment every 4 hours for shortness of breaths Appreciate hopper operator recommendation We will check labs in a.m. Case was seen and examined with Dr. Tripathi, above plan was formulated Further recommendations to follow depending upon hospitalization course ATTESTATION BY PHYSICIAN I have seen and examined the patient. I reviewed the documentation, medical decision making, and treatment plan as noted by the mid-level provider above. I agree with the findings and plan of care. MALACHI TRIPATHI MD, [facility] Mar 12, 2024 09:48
--- NOTE | 2024-03-12 18:18 | PN ---
[facility] PROGRESS NOTE Date Patient Seen: Mar 12, 2024 Time of Visit: 11:30 Supervising Physician: MIN CHEATHAM MD Outpatient Specialists: MD MCMAHAN PROBLEM LIST: Sepsis, present on admission Acute hypoxemic respiratory failure, not home o2 dependent Streptoccocal Bilateral Multifocal Pneumonia Streptococcus pharyngitis Metastatic Breast CA on Chemotherapy Immunocompromised status DM II HTN Hypothyroidism INTERVAL HISTORY: Patient seen and examined at the bedside, she is a 48 year old lady admitted due to severe multifocal Pneumonia, currently on antibiotic she remains on room air, not in distress, denies fevers or chills, Vancomycin has been stopped already she continues on Cefepime and Doxyciline Positive for Strep. REVIEW OF SYSTEMS: 12 point ROS reviewed with patient. Pertinent positives mentioned above. Otherwise negative. PHYSICAL EXAM: GENERAL: alert, weak, awake oriented x 3 HEENT: EOMI, Sclera non icteric, moist mucosa NECK: Supple, no JVD, trachea midline LUNGS: fair entry, bibasilar crackles ,no wheezing HEART: Regular rate and rhythm. Normal S1 and S2, without murmurs ABD: Abdomen soft, nontender. Bowel sounds present EXT: No clubbing cyanosis or edema NEURO: Alert and oriented to person, follows commands Vital Signs (last 8hr) Date Time Temp Pulse Resp B/P (MAP) Pulse Ox O2 Delivery O2 Flow Rate FiO2 03/12/24 16:00 98.2 95 18 117/72 97 Nasal Cannula 24 03/12/24 12:07 98.2 96 18 115/71 92 Room Air 21 LABS: Hematology Labs: Test 03/12/24 04:35 03/11/24 05:21 03/10/24 22:02 Range/Units White Blood Count 10.5 # 4.8-10.8 K/uL Red Blood Count 3.07 L 4.00-5.50 MIL/uL Hemoglobin 8.3 L 12.0-16.0 g/dL Hematocrit 26.8 L 36-48 % Mean Corpuscular Volume 87.3 79-99 fL Mean Corpuscular Hemoglobin 27.0 27.0-33.0 pg Mean Corpuscular Hemoglobin Concent 31.0 L 32.0-36.0 g/dL Red Cell Distribution Width 15.1 11.0-15.5 % Platelet Count 187 130-400 K/uL Mean Platelet Volume 9.6 7.5-10.5 fL Nucleated Red Blood Cells 0.0 0.0-0.19 % Immature Granulocyte % (Auto) 0.1 0-1 % Neutrophils (%) (Auto) 87.2 H 40.0-77.0 % Lymphocytes (%) (Auto) 7.6 L 21.0-51.0 % Monocytes (%) (Auto) 4.8 3.0-13.0 % Eosinophils (%) (Auto) 0.0 0.0-8.0 % Basophils (%) (Auto) 0.3 0.0-5.0 % Neutrophils # (Auto) 6.0 1.8-7.7 K/uL Lymphocytes # (Auto) 0.5 L 1.0-4.8 K/uL Monocytes # (Auto) 0.3 0.1-1.0 K/uL Eosinophils # (Auto) 0.00 0.00-0.70 K/uL Basophils # (Auto) 0.02 0.00-0.20 K/uL Absolute Immature Granulocyte (auto 0.01 0-1 K/uL White Cell Morphology Comment See comments Red Blood Cell Morphology See comments Chemistry Labs: Test 03/12/24 04:35 03/11/24 05:21 03/10/24 22:02 Range/Units Sodium Level 140 136-145 mmol/L Potassium Level 4.0 3.5-5.1 mmol/L Chloride Level 104 101-111 mmol/L Carbon Dioxide Level 30 21-32 mmol/L Blood Urea Nitrogen 6 L 7-18 mg/dL Creatinine 0.7 0.5-1.0 mg/dL Glomerular Filtration Rate Calc 107 >90 mL/min Random Glucose 99 70-105 mg/dL Total Calcium 8.8 8.5-10.1 mg/dL Hemoglobin A1c 5.5 4.0-6.0 % Estimated Average Glucose (eAG) 111 70-126 mg/dL Lactic Acid Level 1.2 0.8-2.5 mmol/L Magnesium Level 1.50 L 1.80-2.40 mg/dL Total Bilirubin 1.0 0.2-1.0 mg/dL Aspartate Amino Transf (AST/SGOT) 13 10-37 U/L Alanine Aminotransferase (ALT/SGPT) 15 12-78 U/L Alkaline Phosphatase 98 50-136 U/L Total Protein 5.7 L 6.0-8.3 g/dL Albumin 2.5 L 3.5-5.0 g/dL Procalcitonin 0.76 H 0.05-0.5 ng/mL Total Creatine Kinase 75 21-232 U/L Troponin I High Sensitivity 9 4-50 ng/L DIAGNOSTICS / RADIOLOGY RESULTS: [ ] PULMONARY PLAN: CTA of chest , Venous doppler Atrovent, Pulmicort, CPT. Aggressive pulmonary toileting Antibiotic therapy with Vanco and Cefepime , obtain Sputum culture CXR in AM/ ABG now on room air Supplemental 02 as needed. Will require home 02 assessment prior to dc Will also obtain an echocardiogram to further asses her LVEF Maintain aspiration precautions at all times ORTHO/REHAB: Continue PT/OT Prophylaxis: Continue GI and DVT prophylaxis Code Status: Full Resuscitation Disposition: per primar team Other: Total patient care time exceeds 35 minutes excluding all procedures. ATTESTATION BY PHYSICIAN Documentation assistance provided by a scribe, information recorded by the scribe was done at my direction and has been reviewed and validated by me." LINDEN COPELAND MD I personally scribed for LINDEN COPELAND MD ([email or web address]) on 03/12/24 at 18:18. Electronically submitted by Darling Ledesma ([id number]). LINDEN COPELAND MD Mar 12, 2024 18:18
[2024-03-12] MEDS: BUDESONIDE 0.5 MG/2 ML INH IH SCH (19:00)
[2024-03-12] MEDS: IpraTROPium 0.5 MG/2.5 ML INH IH SCH (19:00)
[2024-03-12] MEDS: DOXYCYCLINE HYCLATE 100 MG TABLET PO SCH (21:18)
[2024-03-13] VITALS (14 sets, daily range): BP systolic 105–122; BP diastolic 56–82; PULSE 88–104; RESP 17–20; TEMP 97.9–99.1; O2SAT 88–96
[2024-03-13 05:39] LABS: HEMATOCRIT 26.9 % (36-48); MEAN CORPUSCULAR HEMOGLOBIN 26.7 pg (27.0-33.0); MEAN CORPUSCULAR HGB CONC 31.2 g/dL (32.0-36.0); MEAN CORPUSCULAR VOLUME 85.4 fL (79-99); NUCLEATED RED BLOOD CELLS 0.2 % (0.0-0.19); RED BLOOD CELL COUNT(AUTO) 3.15 MIL/uL (4.00-5.50); RED CELL DISTRIBUTION WIDTH 15.4 % (11.0-15.5); WHITE BLOOD COUNT (AUTO) 13.2 K/uL (4.8-10.8)
[2024-03-13 05:45] LABS: CREATININE 0.7 mg/dL (0.5-1.0); POTASSIUM 3.3 mmol/L (3.5-5.1)
--- NOTE | 2024-03-13 06:14 | CONS ---
DATE OF SERVICE: 03/12/2024 INFECTIOUS DISEASE CONSULTATION NOTE REQUESTING PHYSICIAN: Maria Ines Elias NP REASON FOR CONSULTATION: Pneumonia, on antibiotic management. HISTORY OF PRESENT ILLNESS: The patient is an unfortunate 48-year-old female with metastatic left breast cancer who presented to the hospital with fever, cough and shortness of breath. The patient's symptoms started five days prior to presentation. T-max on admission was 102.9. The patient had cough productive of yellowish sputum. No hemoptysis. The patient also had some nausea, vomiting, but no diarrhea or abdominal pain. The patient had CT angiogram of chest done, which shows no evidence of pulmonary embolism, but showed bilateral infiltrate. The patient has been started on cefepime. The patient is on oral chemotherapy and follows up with Oncology at [facility]. No dysuria or hematuria. PAST MEDICAL HISTORY: * Metastatic left breast cancer. * Hypothyroidism. * Diabetes mellitus. * Obesity. PAST SURGICAL HISTORY: * Port-A-Cath placement. * Left breast biopsy. ALLERGIES: No known drug allergy. CURRENT MEDICATIONS: Reviewed. SOCIAL HISTORY: No alcohol, tobacco or illicit drug use. FAMILY HISTORY: Positive for diabetes mellitus. REVIEW OF SYSTEMS: CONSTITUTIONAL: Positive for fever and chills. No weight loss or night sweats. EYES: No eye pain. No photophobia or diplopia. HENT: No sore throat. No rhinorrhea or earache. NECK: No neck pain or neck swelling. RESPIRATORY: Positive for cough. No hemoptysis or pleuritic pain. CARDIOVASCULAR: No chest pain. No palpitations or orthopnea. GASTROINTESTINAL: No nausea, vomiting or diarrhea. GENITOURINARY: No dysuria, urgency or urinary frequency. CENTRAL NERVOUS SYSTEM: No headache, dyspnea, or slurred speech. PSYCHIATRY: No depression. No suicidal ideation. MUSCULOSKELETAL: No joint pain or joint swelling. PHYSICAL EXAMINATION: GENERAL: Young female, awake. VITAL SIGNS: Temperature 98.1, pulse 102, respiratory rate 20, BP 119/65. EYES: No icterus. Pupils are equal and reactive. HENT: No oral thrush seen. Moist oral mucosa. NECK: Supple. No JVD or thyromegaly. LUNGS: Crackles bilaterally. No rhonchi. CARDIOVASCULAR: S1, S2 regular, tachycardic. No murmur heard. ABDOMEN: Obese. Soft. Nontender. Bowel sound is present. CENTRAL NERVOUS SYSTEM: Awake, alert, oriented x 3. No focal deficits. SKIN: No rashes. No itchiness. MUSCULOSKELETAL: No joint swelling, erythema or tenderness. BACK: No deformity. No pressure ulcer. LABORATORY DATA: Sodium 140, potassium 4.0, BUN 6, creatinine 0.7. WBC 10.5, hemoglobin 8.3, platelet 187. Urinalysis negative. Rapid group A strep positive. Sputum culture, no growth. Blood culture, no growth for one day. RADIOLOGY: CT angiogram of chest shows no evidence of pulmonary embolism. ASSESSMENT: A 48-year-old female presenting with cough and fever. CURRENT PROBLEMS: Include: * Sepsis. * Hypoxic respiratory failure. * Metastatic breast cancer. * Underlying immunosuppression. * Multifocal pneumonia. * Anemia. PLAN: * Continue cefepime. * Start the patient on doxycycline. * Follow up culture. * Continue pain management. * Continue antihypertensive. * Continue nutritional support. * Monitor renal function. * The patient will be followed up closely. Thank you for allowing me to participate in the care of this patient. TID: [id number] RECEIPT: [id number]
--- NOTE | 2024-03-13 11:09 | PN ---
[facility] PROGRESS NOTE Date of Service: Mar 13, 2024 Time of Service: 11:05 SUBJECTIVE: [ 48-year-old female admitted for shortness of breaths secondary to pneumonia. Patient was hypoxic when she arrived in the ED. She is currently on 2 L via nasal cannula with saturation at 91%. Patient is immunocompromised due to history of breast cancer to the left side and currently on chemotherapy. We have consulted chemical plant operator supervisor and Infectious Disease for further recommendations. Patient was evaluated in room 331, she is currently afebrile. Patient is saturating 91% on room air at this time, we will continue to monitor closely and tried to titrate and wean off oxygen as tolerated. Continue to follow recommendations from ID and chemical plant operator supervisor. She is afebrile. Labs reviewed. REVIEW OF SYSTEMS CONSTITUTIONAL: Positive chills and generalized weakness Denies fevers, night sweats. No unintentional weight loss reported. NEUROLOGICAL: Denies headache, amaurosis fugax, motor weakness, sensory deficit, vertigo/spinning sensation, gait abnormalities, or tremors. ENT: Positive sore throat No hearing loss, otalgia, otorrhea, rhinitis, rhinorrhea, hoarseness, CARDIOVASCULAR: Denies any exertional angina, dyspnea on exertion, orthopnea, paroxysmal nocturnal dyspnea, palpitations, life-threatening arrhythmias, claudication. PULMONARY: Positive shortness of breath with productive cough Denies hemoptysis, pleuritic chest pain. SLEEP: Denies morning headaches, daytime somnolence or napping. Denies difficulty falling asleep, staying asleep, waking from sleep. Denies knowledge of snoring. GASTROINTESTINAL: Complained of Nausea vomiting and diarrhea Denies any type of dysphagia to either liquids or solids. Denies nausea, vomiting, pyrosis, early satiety, abdominal pain, diarrhea, constipation, or changes in stool consistency or caliber. Denies coffee-ground emesis, hematemesis, hematochezia, or melanotic stools. GENITOURINARY: Denies frequency, urgency, nocturia, hematuria or incontinence (Storage/Irritative symptoms.) Low urinary stream, straining to void, urinary intermittency or hesitancy, splitting of the voiding stream, terminal dribbling. ENDOCRINOLOGIC: Denies polyuria, polydipsia, polyphagia or heat/cold intolerances. HEMATOLOGIC: Denies thrombophilia/previous clots, or coagulopathy/bleeding disorders. ONCOLOGIC: Denies personal history of malignancy. DERMATOLOGIC: Denies rashes or pruritus. PSYCHIATRIC: Denies any suicidal or homicidal ideation. Denies hallucinations. PHYSICAL EXAM GENERAL APPEARANCE: The patient is awake, alert, and oriented, in no acute cardiopulmonary distress. NEUROLOGICAL: Cranial nerves II-XII grossly intact. Motor is 5/5 in bilateral upper and lower extremities proximal to distal. No sensory deficits. HEENT: Face is symmetric. Pupils are equal and reactive. Extraocular movements are intact. NECK: Supple. No JVD. No thyromegaly. No submental, submandibular, pre- /postauricular, occipital or supraclavicular lymphadenopathy. CHEST: Normal chest expansion. No Telemetry. LUNGS: Tachypneic Absence of any rales, rhonchi or any wheezing. CARDIOVASCULAR: Tachycardic S1 and S2 normal. No appreciable rubs, murmurs or gallops. ABDOMEN: Soft, nontender, and nondistended. There is no rebound, voluntary guarding, or rigidity. : Deferred. No Davis. EXTREMITIES: Non-edematous and not cyanotic. No clubbing. Good capillary refill. SKIN: No skin breakdown. Vital Signs (last 8hr) Date Time Temp Pulse Resp B/P (MAP) Pulse Ox O2 Delivery O2 Flow Rate FiO2 03/13/24 08:00 98.4 95 20 105/60 92 Room Air 21 03/13/24 08:00 92 Room Air* 0 21 03/13/24 06:57 99 20 N/Cannula Low lpm 2.0 28 03/13/24 06:56 92 20 03/13/24 04:17 99.1 94 17 119/82 94 Nasal Cannula 1.0 LABS: Laboratory: Test 03/13/24 04:59 03/11/24 20:32 Range/Units White Blood Count 13.2 H 4.8-10.8 K/uL Red Blood Count 3.15 L 4.00-5.50 MIL/uL Hemoglobin 8.4 L 12.0-16.0 g/dL Hematocrit 26.9 L 36-48 % Mean Corpuscular Volume 85.4 79-99 fL Mean Corpuscular Hemoglobin 26.7 L 27.0-33.0 pg Mean Corpuscular Hemoglobin Concent 31.2 L 32.0-36.0 g/dL Red Cell Distribution Width 15.4 11.0-15.5 % Platelet Count 271 # 130-400 K/uL Mean Platelet Volume 10.0 7.5-10.5 fL Nucleated Red Blood Cells 0.2 H 0.0-0.19 % Sodium Level 139 136-145 mmol/L Potassium Level 3.3 L 3.5-5.1 mmol/L Chloride Level 104 101-111 mmol/L Carbon Dioxide Level 29 21-32 mmol/L Blood Urea Nitrogen 6 L 7-18 mg/dL Creatinine 0.7 0.5-1.0 mg/dL Glomerular Filtration Rate Calc 107 >90 mL/min Random Glucose 119 H 70-105 mg/dL Total Calcium 8.7 8.5-10.1 mg/dL Urine Color LIGHT-YELLOW YELLOW Urine Appearance CLEAR CLEAR Urine pH 6.0 5.0-8.0 Urine Specific [place] 1.034 H 1.001-1.031 Urine Protein NEGATIVE NEGATIVE mg/dL Urine Glucose (UA) NEGATIVE NEGATIVE mg/dL Urine Ketones NEGATIVE NEGATIVE mg/dL Urine Occult Blood NEGATIVE NEGATIVE Urine Nitrate NEGATIVE NEGATIVE Urine Bilirubin NEGATIVE NEGATIVE mg/dL Urine Urobilinogen 0.2 0.2-1.0 mg/dL Urine Leukocyte Esterase 25 H NEGATIVE Deshaun/uL Urine RBC 0-1 0-1 /HPF Urine WBC 2-5 H 0-1 /HPF Urine Squamous Epithelial Cells RARE 0-2 /HPF Urine Bacteria None None Seen /HPF Current Medications Medications (Trade) Dose Ordered Sig/Marisol Route PRN Reason Start Time Stop Time Status Last Admin Dose Admin Acetaminophen (TYLenol 325MG TAB) 650 mg Q4H PRN PO MILD PAIN (1-3) 03/11/24 03:00 04/10/24 02:59 Acetaminophen (TYLenol 325MG TAB) 650 mg Q6H PRN PO TEMPERATURE GREATER THAN 101.5 03/11/24 03:00 04/10/24 02:59 03/11/24 04:16 650 MG Acetaminophen/ Hydrocodone Bitart (NORco 5/325MG) 1 tab Q4H PRN PO MODERATE PAIN (4-6) 03/11/24 03:00 03/16/24 02:59 Albuterol (DUOneb) 1 udvial [id number] IH 03/11/24 06:00 03/11/24 09:24 DC 03/11/24 06:56 1 UDVIAL Amoxicillin/ Clavulanate Potassium (Augmentin 875-125 Tablet) 1 each Q12H PO 03/10/24 23:00 03/10/24 23:25 DC Budesonide (Pulmicort 0.5 Mg/2ml) 0.5 mg BID IH 03/11/24 09:00 03/12/24 11:57 DC 03/12/24 07:21 0.5 MG Budesonide (Pulmicort 0.5 Mg/2ml) 0.5 mg BIDRESP IH 03/12/24 18:00 04/10/24 08:59 03/13/24 06:55 0.5 MG Cefepime HCl (MAXipime 1 GM vial) 1 gm Q8H IVPB 03/10/24 23:30 03/11/24 02:56 DC Cefepime HCl (MAXipime 1 GM vial) 1 gm Q8H IVPB 03/11/24 03:00 03/21/24 02:59 03/13/24 03:01 1 GM Doxycycline Hyclate (Doxycycline Hyclate) 100 mg BID PO 03/12/24 21:00 03/22/24 20:59 03/13/24 08:49 100 MG Enoxaparin Sodium (Lovenox) 40 mg DAILY SQ 03/11/24 09:00 04/10/24 08:59 03/13/24 08:52 40 MG Famotidine (Pepcid 20mg Tab) 20 mg BID PO 03/11/24 09:00 04/10/24 08:59 03/13/24 08:49 20 MG Guaifenesin/ Dextromethorphan (RobiTUSSin DM 200/20MG 10ML) 10 ml Q4H PRN PO COUGH 03/11/24 03:00 04/10/24 02:59 Ipratropium [place] (AtrovENT UD) 0.5 mg Q6H IH 03/11/24 09:00 03/12/24 11:54 DC 03/12/24 11:49 0.5 MG Ipratropium [place] (AtrovENT UD) 0.5 mg Q1TMVDC IH 03/12/24 18:00 04/10/24 08:59 03/13/24 06:55 0.5 MG Levothyroxine Sodium (SYNTHroid 50MCG TAB) 50 mcg SYN PO 03/14/24 06:30 04/13/24 06:29 Magnesium Sulfate 50 ml @ 0 mls/hr PROTOCOL PRN IV MAGNESIUM PROTOCOL 03/12/24 03:30 04/11/24 03:29 Ondansetron HCl (zoFRAN 4MG INJ) 4 mg Q6H PRN IV NAUSEA/VOMITING 03/11/24 03:00 04/10/24 02:59 Vancomycin HCl 250 ml @ 125 mls/hr ONCE IV 03/11/24 03:00 03/11/24 04:59 DC Vancomycin HCl 250 ml @ 125 mls/hr Q12H IV 03/11/24 15:00 03/11/24 09:07 DC Vancomycin HCl (Vancomycin Protocol) 1 each AD IV 03/11/24 03:00 03/11/24 03:09 DC DIAGNOSTICS / RADIOLOGY: [ ] ASSESSMENT: Acute respiratory failure with hypoxia POA Sirs with organ dysfunction POA Suspected pneumonia with left pleural effusion POA Positive strep throat POA Hypokalemia POA Acute anemia POA Hypothyroidism POA Hypertension POA Diabetes POA History of metastatic breast cancer with recent chemotherapy POA PLAN: Patient will continued to be admitted with telemetry Patient will continue current diet, so far tolerated Appreciate recommendations from Infectious Disease, continue with cefepime and doxycycline Continue with gentle IV fluid hydration We will continue with famotidine 20 mg IV b.i.d. for GI prophylaxis We will continue to replace electrolytes as needed per protocol We continue sliding scale insulin per protocol with hypoglycemia protocol Continue oxygen supplementation to keep saturation above 92% Continue DuoNeb treatment every 4 hours for shortness of breaths Appreciate chemical plant operator supervisor recommendation We will see if patient tolerates to get O2 weaned off We will check labs in a.m. Case was seen and examined with Dr. Tripathi, above plan was formulated Further recommendations to follow depending upon hospitalization course ATTESTATION BY PHYSICIAN I have seen and examined the patient. I reviewed the documentation, medical decision making, and treatment plan as noted by the mid-level provider above. I agree with the findings and plan of care. MALACHI TRIPATHI MD, JANICE B AGPCNP Mar 13, 2024 11:09
--- NOTE | 2024-03-13 14:52 | PN ---
INFECTIOUS DISEASE PROGRESS NOTE Date of Service: Mar 13, 2024 SUBJECTIVE: Patient was seen and examined at bedside in room 331. Patient is awake, alert and oriented x3. Patient continues on oxygen support via nasal cannula at 2 liters/minute. No reports of fever, temperature is 98.4. There was a slight trending up of the WBC to 13.2 this morning. Patient's rapid streptococcus was positive. We will follow up on the sputum cultures. Continues on cefepime IV and doxycycline p.o. We will continue to monitor patient's care. PHYSICAL EXAM EYES: Anicteric. Pupils equal and reactive. HENT: No oral thrush seen, moist Oral mucosa. NECK: Supple, no JVD or thyromegaly. LUNGS: Good air entry. No rales, no rhonchi. Oxygen via nasal cannula CARDIOVASCULAR: S1, S2 regular. No murmur heard. ABDOMEN: Soft, non tender, bowel sounds present, no organomegaly. CENTRAL NERVOUS SYSTEM: Awake, alert, oriented x 3. SKIN: No rashes, no swelling. LYMPHATICS: No peripheral lymphadenopathy. MUSCULOSKELETAL: No joint swelling, erythema or tenderness. EXTREMITIES: No cyanosis or clubbing. BACK: No deformity, no pressure ulcer. GENITOURINARY: No dysuria or hematuria. Vital Sign (Last 12 Hours) 03/13/24 03/13/24 03/13/24 03/13/24 04:17 06:56 06:57 08:00 Temp 99.1 Pulse 94 92 99 Resp 17 20 20 B/P (MAP) 119/82 Pulse Ox 94 92 O2 Delivery Nasal Cannula N/Cannula Low lpm Room Air* O2 Flow Rate 1.0 2.0 0 FiO2 28 21 03/13/24 03/13/24 03/13/24 03/13/24 08:00 11:00 11:17 11:53 Temp 98.4 98.2 Pulse 95 91 88 96 90 Resp 20 18 20 18 18 B/P (MAP) 105/60 110/56 Pulse Ox 92 90 O2 Delivery Room Air Room Air FiO2 21 21 21 21 Intake & Output (last 24hrs) 03/12/24 03/12/24 03/13/24 15:00 23:00 07:00 Intake Total 360 ml 240 ml Balance 360 ml 240 ml LABS: Laboratory: Test 03/13/24 04:59 11/6/24 20:32 Range/Units White Blood Count 13.2 H 4.8-10.8 K/uL Red Blood Count 3.15 L 4.00-5.50 MIL/uL Hemoglobin 8.4 L 12.0-16.0 g/dL Hematocrit 26.9 L 36-48 % Mean Corpuscular Volume 85.4 79-99 fL Mean Corpuscular Hemoglobin 26.7 L 27.0-33.0 pg Mean Corpuscular Hemoglobin Concent 31.2 L 32.0-36.0 g/dL Red Cell Distribution Width 15.4 11.0-15.5 % Platelet Count 271 # 130-400 K/uL Mean Platelet Volume 10.0 7.5-10.5 fL Nucleated Red Blood Cells 0.2 H 0.0-0.19 % Sodium Level 139 136-145 mmol/L Potassium Level 3.3 L 3.5-5.1 mmol/L Chloride Level 104 101-111 mmol/L Carbon Dioxide Level 29 21-32 mmol/L Blood Urea Nitrogen 6 L 7-18 mg/dL Creatinine 0.7 0.5-1.0 mg/dL Glomerular Filtration Rate Calc 107 >90 mL/min Random Glucose 119 H 70-105 mg/dL Total Calcium 8.7 8.5-10.1 mg/dL Urine Color LIGHT-YELLOW YELLOW Urine Appearance CLEAR CLEAR Urine pH 6.0 5.0-8.0 Urine Specific [place] 1.034 H 1.001-1.031 Urine Protein NEGATIVE NEGATIVE mg/dL Urine Glucose (UA) NEGATIVE NEGATIVE mg/dL Urine Ketones NEGATIVE NEGATIVE mg/dL Urine Occult Blood NEGATIVE NEGATIVE Urine Nitrate NEGATIVE NEGATIVE Urine Bilirubin NEGATIVE NEGATIVE mg/dL Urine Urobilinogen 0.2 0.2-1.0 mg/dL Urine Leukocyte Esterase 25 H NEGATIVE Deshaun/uL Urine RBC 0-1 0-1 /HPF Urine WBC 2-5 H 0-1 /HPF Urine Squamous Epithelial Cells RARE 0-2 /HPF Urine Bacteria None None Seen /HPF ASSESSMENT: Hypoxic history failure, requiring oxygen support. Moderate multifocal pneumonia. Sepsis. Urinary tract infection. Streptococcus infection. Metastatic breast cancer. Underlying immune suppression. Anemia PLAN: Continue cefepime. Continue doxycycline. Continue GI prophylaxis. Continue oxygen support. Continue bronchodilators. We will follow up on the cultures. Continue pain management. We will monitor electrolytes. This case was reviewed and discussed with my supervising physician and the above assessment and plan was formulated and agreed upon. ATTESTATION BY PHYSICIAN I have seen and examined the patient. I reviewed the documentation, medical decision making, and treatment plan as noted by the mid-level provider above. I agree with the findings and plan of care. JANENE BOTELLO MD, [facility] Mar 13, 2024 14:52
[2024-03-13] MEDS ORDERED: PoTASSium chloRIDE 20MEQ/100ML 100 ML IV PRN (18:00)
[2024-03-13] MEDS ORDERED: PoTASSium chl 10% ELIXIR 20MEQ 20 MEQ/15 ML UDCUP PO PRN (18:00)
[2024-03-13] MEDS: PoTASSium chloRIDE 20MEQ ER 20 MEQ ERTAB PO PRN (18:06)
--- NOTE | 2024-03-13 19:09 | PN ---
[facility] PROGRESS NOTE Date Patient Seen: Mar 13, 2024 Time of Visit: 19:04 Supervising Physician: LINDEN COPELAND MD Outpatient Specialists: MD MCMAHAN PROBLEM LIST: Acute sepsis on admission without septic shock Bilateral community acquired pneumonia with Streptococcus bacteria Streptococcus pharyngitis Immunocompromised status on admission Metastatic breast cancer on active chemotherapy Hypertension Type 2 diabetes mellitus Morbid obesity, BMI 43.2 Hypothyroidism Adult failure to thrive INTERVAL HISTORY: Ms. Stafford is seen and evaluated She is on 3 liters O2 via nasal canula Very weak, pale and short of breath Has dry cough, still with poor appetite She is very talkative and in good spirits No fevers No chills No nausea or vomiting REVIEW OF SYSTEMS: 12 point ROS reviewed with patient. Pertinent positives mentioned above. Otherwise negative. PHYSICAL EXAM: GENERAL: alert, weak, awake oriented x 3 HEENT: EOMI, Sclera non icteric, moist mucosa NECK: Supple, no JVD, trachea midline LUNGS: no wheezing, no crackles, no rhonchi HEART: Regular rate and rhythm. Normal S1 and S2, without murmurs ABD: Abdomen soft, nontender. Bowel sounds present EXT: No clubbing cyanosis or edema NEURO: Alert and oriented to person, follows commands Vital Signs (last 8hr) Date Time Temp Pulse Resp B/P (MAP) Pulse Ox O2 Delivery O2 Flow Rate FiO2 03/13/24 18:30 98 20 N/Cannula Low lpm 3.0 32 03/13/24 18:29 89 20 03/13/24 16:00 97.9 93 20 108/60 98 Nasal Cannula 3.0 28 03/13/24 11:53 96 18 21 90 18 21 03/13/24 11:17 88 20 LABS: Hematology Labs: Test 03/13/24 04:59 Range/Units White Blood Count 13.2 H 4.8-10.8 K/uL Red Blood Count 3.15 L 4.00-5.50 MIL/uL Hemoglobin 8.4 L 12.0-16.0 g/dL Hematocrit 26.9 L 36-48 % Mean Corpuscular Volume 85.4 79-99 fL Mean Corpuscular Hemoglobin 26.7 L 27.0-33.0 pg Mean Corpuscular Hemoglobin Concent 31.2 L 32.0-36.0 g/dL Red Cell Distribution Width 15.4 11.0-15.5 % Platelet Count 271 # 130-400 K/uL Mean Platelet Volume 10.0 7.5-10.5 fL Nucleated Red Blood Cells 0.2 H 0.0-0.19 % Chemistry Labs: Test 03/13/24 04:59 Range/Units Sodium Level 139 136-145 mmol/L Potassium Level 3.3 L 3.5-5.1 mmol/L Chloride Level 104 101-111 mmol/L Carbon Dioxide Level 29 21-32 mmol/L Blood Urea Nitrogen 6 L 7-18 mg/dL Creatinine 0.7 0.5-1.0 mg/dL Glomerular Filtration Rate Calc 107 >90 mL/min Random Glucose 119 H 70-105 mg/dL Total Calcium 8.7 8.5-10.1 mg/dL DIAGNOSTICS / RADIOLOGY RESULTS: [ Chest x-ray reviewed at bedside with nurse ] PULMONARY PLAN: Get a chest x-ray in the morning continue with O2 and maintain saturation at 88% or higher Incentive spirometry continue on IV antibiotics continue on airborne isolation nutritional support ORTHO/REHAB: Continue PT/OT as tolerated Prophylaxis: Continue GI and DVT prophylaxis Code Status: Full Resuscitation Disposition: per primar team Other: Total patient care time exceeds 35 minutes excluding all procedures. ATTESTATION BY PHYSICIAN The note above was scribed by Eusebio Broderick BSc and I attest to the clnical accuracy of the information included in this note Linden Copeland MD I personally scribed for LINDEN COPELAND MD ([email or web address]) on 03/13/24 at 19:09. Electronically submitted by Eusebio Broderick ([email or web address]). LINDEN COPELAND MD Mar 13, 2024 19:09
[2024-03-13 22:09] LABS: MYCOPLASMA AB IGM <770 U/mL (0-769)
[2024-03-14] VITALS (15 sets, daily range): BP systolic 110–129; BP diastolic 57–76; PULSE 82–106; RESP 18–20; TEMP 98.1–99.2; O2SAT 88–99
[2024-03-14 03:55] LABS: HEMATOCRIT 27.5 % (36-48); MEAN CORPUSCULAR HEMOGLOBIN 27.2 pg (27.0-33.0); MEAN CORPUSCULAR HGB CONC 31.3 g/dL (32.0-36.0); NUCLEATED RED BLOOD CELLS 0.2 % (0.0-0.19); RED BLOOD CELL COUNT(AUTO) 3.16 MIL/uL (4.00-5.50); RED CELL DISTRIBUTION WIDTH 15.1 % (11.0-15.5); WHITE BLOOD COUNT (AUTO) 16.8 K/uL (4.8-10.8)
[2024-03-14 04:11] LABS: ALBUMIN 2.2 g/dL (3.5-5.0); BILIRUBIN,TOTAL 0.5 mg/dL (0.2-1.0); CREATININE 0.6 mg/dL (0.5-1.0); POTASSIUM 3.9 mmol/L (3.5-5.1); TOTAL PROTEIN, SERUM 5.7 g/dL (6.0-8.3)
[2024-03-14] MEDS: levoTHYROxine 50 MCG TABLET PO SCH (05:49)
--- NOTE | 2024-03-14 09:20 | HMCIMG ---
CHEST 1VW HISTORY: Cough COMPARISON: None FINDINGS: A frontal projection of the chest was obtained. Bilateral pulmonary infiltrates are seen. Left pleural effusion is seen. The heart is borderline enlarged. Degenerative changes are seen. No evidence of aortic calcification is seen. IMPRESSION: 1. Bilateral pulmonary infiltrates.
--- NOTE | 2024-03-14 12:22 | PN ---
[facility] PROGRESS NOTE Date of Service: Mar 14, 2024 Time of Service: 12:17 SUBJECTIVE: [ 48-year-old female admitted for shortness of breaths secondary to pneumonia. Patient was hypoxic when she arrived in the ED. She is currently on 2 L via nasal cannula with saturation at 91%. Patient is immunocompromised due to history of breast cancer to the left side and currently on chemotherapy. We have consulted rocket [employer]ellant [employer] supervisor and Infectious Disease for further recommendations. Patient was evaluated in room 331, she is currently afebrile. Patient is saturating 93% on 3LNC. We will continue to titrate. She had a 6 minute walk for which she was noted with acute respiratory failure with saturation 88% on room air. Patient's x-ray showed bilateral pulmonary infiltrates we will continue with current IV antibiotics. Patient is afebrile. REVIEW OF SYSTEMS CONSTITUTIONAL: Positive chills and generalized weakness Denies fevers, night sweats. No unintentional weight loss reported. NEUROLOGICAL: Denies headache, amaurosis fugax, motor weakness, sensory deficit, vertigo/spinning sensation, gait abnormalities, or tremors. ENT: Positive sore throat No hearing loss, otalgia, otorrhea, rhinitis, rhinorrhea, hoarseness, CARDIOVASCULAR: Denies any exertional angina, dyspnea on exertion, orthopnea, paroxysmal nocturnal dyspnea, palpitations, life-threatening arrhythmias, claudication. PULMONARY: Positive shortness of breath with productive cough Denies hemoptysis, pleuritic chest pain. SLEEP: Denies morning headaches, daytime somnolence or napping. Denies difficulty falling asleep, staying asleep, waking from sleep. Denies knowledge of snoring. GASTROINTESTINAL: Complained of Nausea vomiting and diarrhea Denies any type of dysphagia to either liquids or solids. Denies nausea, vomiting, pyrosis, early satiety, abdominal pain, diarrhea, constipation, or changes in stool consistency or caliber. Denies coffee-ground emesis, hematemesis, hematochezia, or melanotic stools. GENITOURINARY: Denies frequency, urgency, nocturia, hematuria or incontinence (Storage/Irritative symptoms.) Low urinary stream, straining to void, urinary intermittency or hesitancy, splitting of the voiding stream, terminal dribbling. ENDOCRINOLOGIC: Denies polyuria, polydipsia, polyphagia or heat/cold intoleran alley. HEMATOLOGIC: Denies thrombophilia/previous clots, or coagulopathy/bleeding disorders. ONCOLOGIC: Denies personal history of malignancy. DERMATOLOGIC: Denies rashes or pruritus. PSYCHIATRIC: Denies any suicidal or homicidal ideation. Denies hallucinations. PHYSICAL EXAM GENERAL APPEARANCE: The patient is awake, alert, and oriented, in no acute cardiopulmonary distress. NEUROLOGICAL: Cranial nerves II-XII grossly intact. Motor is 5/5 in bilateral upper and lower extremities proximal to distal. No sensory deficits. HEENT: Face is symmetric. Pupils are equal and reactive. Extraocular movements are intact. NECK: Supple. No JVD. No thyromegaly. No submental, submandibular, pre- /postauricular, occipital or supraclavicular lymphadenopathy. CHEST: Normal chest expansion. No Telemetry. LUNGS: Tachypneic Absence of any rales, rhonchi or any wheezing. CARDIOVASCULAR: Tachycardic S1 and S2 normal. No appreciable rubs, murmurs or gallops. ABDOMEN: Soft, nontender, and nondistended. There is no rebound, voluntary guarding, or rigidity. : Deferred. No Davis. EXTREMITIES: Non-edematous and not cyanotic. No clubbing. Good capillary refi ll. SKIN: No skin breakdown. Vital Signs (last 8hr) Date Time Temp Pulse Resp B/P (MAP) Pulse Ox O2 Delivery O2 Flow Rate FiO2 03/14/24 11:54 86 20 03/14/24 11:54 86 20 N/Cannula Low lpm 3.0 32 03/14/24 08:10 95 Nasal Cannula* 3 32 03/14/24 08:00 98.1 82 18 114/71 95 Nasal Cannula 3.0 28 03/14/24 06:38 86 20 03/14/24 06:37 86 20 N/Cannula Low lpm 3.0 32 LABS: Laboratory: Test 03/14/24 03:30 Range/Units White Blood Count 16.8 #H 4.8-10.8 K/uL Red Blood Count 3.16 L 4.00-5.50 MIL/uL Hemoglobin 8.6 L 12.0-16.0 g/dL Hematocrit 27.5 L 36-48 % Mean Corpuscular Volume 87.0 79-99 fL Mean Corpuscular Hemoglobin 27.2 27.0-33.0 pg Mean Corpuscular Hemoglobin Concent 31.3 L 32.0-36.0 g/dL Red Cell Distribution Width 15.1 11.0-15.5 % Platelet Count 279 130-400 K/uL Mean Platelet Volume 9.6 7.5-10.5 fL Nucleated Red Blood Cells 0.2 H 0.0-0.19 % Sodium Level 137 136-145 mmol/L Potassium Level 3.9 3.5-5.1 mmol/L Chloride Level 103 101-111 mmol/L Carbon Dioxide Level 27 21-32 mmol/L Blood Urea Nitrogen 7 7-18 mg/dL Creatinine 0.6 0.5-1.0 mg/dL Glomerular Filtration Rate Calc 111 >90 mL/min Random Glucose 115 H 70-105 mg/dL Total Calcium 8.5 8.5-10.1 mg/dL Total Bilirubin 0.5 0.2-1.0 mg/dL Aspartate Amino Transf (AST/SGOT) 12 10-37 U/L Alanine Aminotransferase (ALT/SGPT) 15 12-78 U/L Alkaline Phosphatase 98 50-136 U/L Total Protein 5.7 L 6.0-8.3 g/dL Albumin 2.2 L 3.5-5.0 g/dL Procalcitonin 0.25 0.05-0.5 ng/mL Current Medications Medications (Trade) Dose Ordered Sig/Marisol Route PRN Reason Start Time Stop Time Status Last Admin Dose Admin Acetaminophen (TYLenol 325MG TAB) 650 mg Q4H PRN PO MILD PAIN (1-3) 03/11/24 03:00 04/10/24 02:59 Acetaminophen (TYLenol 325MG TAB) 650 mg Q6H PRN PO TEMPERATURE GREATER THAN 101.5 03/11/24 03:00 04/10/24 02:59 03/11/24 04:16 650 MG Acetaminophen/ Hydrocodone Bitart (NORco 5/325MG) 1 tab Q4H PRN PO MODERATE PAIN (4-6) 03/11/24 03:00 03/16/24 02:59 Albuterol (DUOneb) 1 udvial [id number] IH 03/11/24 06:00 03/11/24 09:24 DC 03/11/24 06:56 1 UDVIAL Amoxicillin/ Clavulanate Potassium (Augmentin 875-125 Tablet) 1 each Q12H PO 03/10/24 23:00 03/10/24 23:25 DC Budesonide (Pulmicort 0.5 Mg/2ml) 0.5 mg BID IH 03/11/24 09:00 03/12/24 11:57 DC 03/12/24 07:21 0.5 MG Budesonide (Pulmicort 0.5 Mg/2ml) 0.5 mg BIDRESP IH 03/12/24 18:00 04/10/24 08:59 03/14/24 06:36 0.5 MG Cefepime HCl (MAXipime 1 GM vial) 1 gm Q8H IVPB 03/10/24 23:30 03/11/24 02:56 DC Cefepime HCl (MAXipime 1 GM vial) 1 gm Q8H IVPB 03/11/24 03:00 03/21/24 02:59 03/14/24 11:59 1 GM Doxycycline Hyclate (Doxycycline Hyclate) 100 mg BID PO 03/12/24 21:00 03/22/24 20:59 03/14/24 09:28 100 MG Enoxaparin Sodium (Lovenox) 40 mg DAILY SQ 03/11/24 09:00 04/10/24 08:59 03/14/24 09:29 40 MG Famotidine (Pepcid 20mg Tab) 20 mg BID PO 03/11/24 09:00 04/10/24 08:59 03/14/24 09:28 20 MG Guaifenesin/ Dextromethorphan (RobiTUSSin DM 200/20MG 10ML) 10 ml Q4H PRN PO COUGH 03/11/24 03:00 04/10/24 02:59 Ipratropium [place] (AtrovENT UD) 0.5 mg Q6H IH 03/11/24 09:00 03/12/24 11:54 DC 03/12/24 11:49 0.5 MG Ipratropium [place] (AtrovENT UD) 0.5 mg [id number] IH 03/12/24 18:00 04/10/24 08:59 03/14/24 11:52 0.5 MG Levothyroxine Sodium (SYNTHroid 50MCG TAB) 50 mcg SYN PO 03/14/24 06:30 04/13/24 06:29 03/14/24 05:49 50 MCG Magnesium Sulfate 50 ml @ 0 mls/hr PROTOCOL PRN IV MAGNESIUM PROTOCOL 03/12/24 03:30 04/11/24 03:29 Ondansetron HCl (zoFRAN 4MG INJ) 4 mg Q6H PRN IV NAUSEA/VOMITING 03/11/24 03:00 04/10/24 02:59 Potassium Chloride 100 ml @ 100 mls/hr AD PRN IV POTASSIUM PROTOCOL 03/13/24 18:00 04/12/24 17:59 Potassium Chloride (K-Dur/Klor-Con 20meq) 20 meq AD PRN PO POTASSIUM PROTOCOL 03/13/24 18:00 04/12/24 17:59 03/13/24 23:17 20 MEQ Potassium Chloride (KCl 10% Elixir 20meq/15ml) 20 meq AD PRN PO POTASSIUM PROTOCOL 03/13/24 18:00 04/12/24 17:59 Vancomycin HCl 250 ml @ 125 mls/hr ONCE IV 03/11/24 03:00 03/11/24 04:59 DC Vancomycin HCl 250 ml @ 125 mls/hr Q12H IV 03/11/24 15:00 03/11/24 09:07 DC Vancomycin HCl (Vancomycin Protocol) 1 each AD IV 03/11/24 03:00 03/11/24 03:09 DC DIAGNOSTICS / RADIOLOGY: [ ] ASSESSMENT: Acute respiratory failure with hypoxia POA Sirs with organ dysfunction POA Suspected pneumonia with left pleural effusion POA Positive strep throat POA Hypokalemia POA Acute anemia POA Hypothyroidism POA Hypertension POA Diabetes POA History of metastatic breast cancer with recent chemotherapy POA PLAN: Patient will continued to be admitted with telemetry Patient will continue current diet, so far tolerated Appreciate recommendations from Infectious Disease, continue with cefepime and doxycycline We will DC anbtx C/w oxygen supplementation, keep O2 sat 92%, will try to titrate and wean her off oxygen We will continue with famotidine 20 mg IV b.i.d. for GI prophylaxis We will continue to replace electrolytes as needed per protocol We continue sliding scale insulin per protocol with hypoglycemia protocol Continue oxygen supplementation to keep saturation above 92% Continue DuoNeb treatment every 4 hours for shortness of breaths Appreciate [employer] supervisor recommendation We will see if patient tolerates to get O2 weaned off We will check labs in a.m. Case was seen and examined with Dr. Tripathi, above plan was formulated Further recommendations to follow depending upon hospitalization course ATTESTATION BY PHYSICIAN I have seen and examined the patient. I reviewed the documentation, medical decision making, and treatment plan as noted by the mid-level provider above. I agree with the findings and plan of care. MALACHI TRIPATHI MD, [facility] Mar 14, 2024 12:22
--- NOTE | 2024-03-14 14:26 | PN ---
INFECTIOUS DISEASE PROGRESS NOTE Date of Service: Mar 14, 2024 SUBJECTIVE: This 48 year old female patient is being seen today at bedside. She has no fever or chills. no nausea or vomiting. She denies pain at this time. She is seating in bed, on o2 via nasal canula. Patient remains on antibiotics with WBC 16.8 noted this morning. Denies any abdominal. No dysuria or hematuria. No overnight events are being reported over night. Family at bedside. PHYSICAL EXAM EYES: Anicteric. Pupils equal and reactive. HENT: No oral thrush seen, moist Oral mucosa. NECK: Supple, no JVD or thyromegaly. LUNGS: Good air entry. No rales, no rhonchi. Oxygen via nasal cannula CARDIOVASCULAR: S1, S2 regular. No murmur heard. ABDOMEN: Soft, non tender, bowel sounds present, no organomegaly. CENTRAL NERVOUS SYSTEM: Awake, alert, oriented x 3. SKIN: No rashes, no swelling. LYMPHATICS: No peripheral lymphadenopathy. MUSCULOSKELETAL: No joint swelling, erythema or tenderness. EXTREMITIES: No cyanosis or clubbing. BACK: No deformity, no pressure ulcer. GENITOURINARY: No dysuria or hematuria. Vital Sign (Last 12 Hours) 03/14/24 03/14/24 03/14/24 03/14/24 04:00 06:37 06:38 08:00 Temp 99.1 98.1 Pulse 106 86 86 82 Resp 19 20 20 18 B/P (MAP) 129/76 114/71 Pulse Ox 93 95 O2 Delivery Nasal Cannula N/Cannula Low lpm Nasal Cannula O2 Flow Rate 3.0 3.0 3.0 FiO2 32 28 03/14/24 03/14/24 03/14/24 03/14/24 08:10 11:54 11:54 12:00 Temp 98.4 Pulse 86 86 96 Resp 20 20 18 B/P (MAP) 125/66 Pulse Ox 95 94 O2 Delivery Nasal Cannula* N/Cannula Low lpm Nasal Cannula O2 Flow Rate 3 3.0 2.0 FiO2 32 32 24 Intake & Output (last 24hrs) 03/13/24 03/13/24 03/14/24 15:00 23:00 07:00 Intake Total 600 ml 50.0 ml Balance 600 ml 50.0 ml LABS: Laboratory: Test 03/14/24 03:30 Range/Units White Blood Count 16.8 #H 4.8-10.8 K/uL Red Blood Count 3.16 L 4.00-5.50 MIL/uL Hemoglobin 8.6 L 12.0-16.0 g/dL Hematocrit 27.5 L 36-48 % Mean Corpuscular Volume 87.0 79-99 fL Mean Corpuscular Hemoglobin 27.2 27.0-33.0 pg Mean Corpuscular Hemoglobin Concent 31.3 L 32.0-36.0 g/dL Red Cell Distribution Width 15.1 11.0-15.5 % Platelet Count 279 130-400 K/uL Mean Platelet Volume 9.6 7.5-10.5 fL Nucleated Red Blood Cells 0.2 H 0.0-0.19 % Sodium Level 137 136-145 mmol/L Potassium Level 3.9 3.5-5.1 mmol/L Chloride Level 103 101-111 mmol/L Carbon Dioxide Level 27 21-32 mmol/L Blood Urea Nitrogen 7 7-18 mg/dL Creatinine 0.6 0.5-1.0 mg/dL Glomerular Filtration Rate Calc 111 >90 mL/min Random Glucose 115 H 70-105 mg/dL Total Calcium 8.5 8.5-10.1 mg/dL Total Bilirubin 0.5 0.2-1.0 mg/dL Aspartate Amino Transf (AST/SGOT) 12 10-37 U/L Alanine Aminotransferase (ALT/SGPT) 15 12-78 U/L Alkaline Phosphatase 98 50-136 U/L Total Protein 5.7 L 6.0-8.3 g/dL Albumin 2.2 L 3.5-5.0 g/dL Procalcitonin 0.25 0.05-0.5 ng/mL ASSESSMENT: Hypoxic history failure, requiring oxygen support. Moderate multifocal pneumonia. Sepsis. Urinary tract infection. Streptococcus infection. Metastatic breast cancer. Underlying immune suppression. Anemia PLAN: Continue cefepime. Continue doxycycline. Continue GI prophylaxis. Continue oxygen support. Continue bronchodilators. We will follow up on the cultures. Continue pain management. We will monitor electrolytes. This case was reviewed and discussed with my supervising physician and the above assessment and plan was formulated and agreed upon. [facility] Mar 14, 2024 14:26
--- NOTE | 2024-03-14 17:47 | PN ---
[facility] PROGRESS NOTE Date Patient Seen: Mar 14, 2024 Time of Visit: 11:43 Supervising Physician: KB URENA MD Outpatient Specialists: MD MCMAHAN PROBLEM LIST: Acute sepsis on admission without septic shock Bilateral community acquired pneumonia with Streptococcus bacteria Streptococcus pharyngitis Immunocompromised status on admission Metastatic breast cancer on active chemotherapy Hypertension Type 2 diabetes mellitus Morbid obesity, BMI 43.2 Hypothyroidism Adult failure to thrive INTERVAL HISTORY: Ms. Stafford is awake, alert, well oriented, weak Has dry cough, no fever, chills, nausea or vomiting, tolerating her diet, having bowel movements plan is to be discharge on Saturday. She still on O2 via NC REVIEW OF SYSTEMS: 12 point ROS reviewed with patient. Pertinent positives mentioned above. Othe rwise negative. PHYSICAL EXAM: GENERAL: alert, weak, awake oriented x 3 HEENT: EOMI, Sclera non icteric, moist mucosa NECK: Supple, no JVD, trachea midline LUNGS: no wheezing, no crackles, no rhonchi HEART: Regular rate and rhythm. Normal S1 and S2, without murmurs ABD: Abdomen soft, nontender. Bowel sounds present EXT: No clubbing cyanosis or edema NEURO: Alert and oriented to person, follows commands Vital Signs (last 8hr) Date Time Temp Pulse Resp B/P (MAP) Pulse Ox O2 Delivery O2 Flow Rate FiO2 03/14/24 16:00 98.2 96 18 113/71 97 Nasal Cannula 2.0 24 03/14/24 12:00 98.4 96 18 125/66 94 Nasal Cannula 2.0 24 03/14/24 11:54 86 20 03/14/24 11:54 86 20 N/Cannula Low lpm 3.0 32 LABS: Hematology Labs: Test 03/14/24 03:30 Range/Units White Blood Count 16.8 #H 4.8-10.8 K/uL Red Blood Count 3.16 L 4.00-5.50 MIL/uL Hemoglobin 8.6 L 12.0-16.0 g/dL Hematocrit 27.5 L 36-48 % Mean Corpuscular Volume 87.0 79-99 fL Mean Corpuscular Hemoglobin 27.2 27.0-33.0 pg Mean Corpuscular Hemoglobin Concent 31.3 L 32.0-36.0 g/dL Red Cell Distribution Width 15.1 11.0-15.5 % Platelet Count 279 130-400 K/uL Mean Platelet Volume 9.6 7.5-10.5 fL Nucleated Red Blood Cells 0.2 H 0.0-0.19 % Chemistry Labs: Test 03/14/24 03:30 Range/Units Sodium Level 137 136-145 mmol/L Potassium Level 3.9 3.5-5.1 mmol/L Chloride Level 103 101-111 mmol/L Carbon Dioxide Level 27 21-32 mmol/L Blood Urea Nitrogen 7 7-18 mg/dL Creatinine 0.6 0.5-1.0 mg/dL Glomerular Filtration Rate Calc 111 >90 mL/min Random Glucose 115 H 70-105 mg/dL Total Calcium 8.5 8.5-10.1 mg/dL Total Bilirubin 0.5 0.2-1.0 mg/dL Aspartate Amino Transf (AST/SGOT) 12 10-37 U/L Alanine Aminotransferase (ALT/SGPT) 15 12-78 U/L Alkaline Phosphatase 98 50-136 U/L Total Protein 5.7 L 6.0-8.3 g/dL Albumin 2.2 L 3.5-5.0 g/dL Procalcitonin 0.25 0.05-0.5 ng/mL DIAGNOSTICS / RADIOLOGY RESULTS: [ ] PULMONARY PLAN: continue with O2 and maintain saturation at 88% or higher Incentive spirometry continue on IV antibiotics continue on airborne isolation nutritional support ORTHO/REHAB: Continue PT/OT as tolerated Prophylaxis: Continue GI and DVT prophylaxis Code Status: Full Resuscitation Disposition: per primar team ATTESTATION BY PHYSICIAN Documentation assistance provided by a scribe Darling Ledesma, information recorded by the scribe was done at my direction and has been reviewed and validated by me." KB ANDRE MD I personally scribed for KB ANDRE MD ([email or web address]) on 03/14/24 at 17:47. Electronically submitted by Darling Ledesma ([id number]). KB ANDRE MD Mar 14, 2024 17:47
[2024-03-15] VITALS (14 sets, daily range): BP systolic 116–135; BP diastolic 52–82; PULSE 78–103; RESP 16–20; TEMP 97.8–98.6; O2SAT 87–96
[2024-03-15 05:31] LABS: HEMATOCRIT 27.2 % (36-48); MEAN CORPUSCULAR HEMOGLOBIN 27.1 pg (27.0-33.0); MEAN CORPUSCULAR HGB CONC 30.9 g/dL (32.0-36.0); MEAN CORPUSCULAR VOLUME 87.7 fL (79-99); NUCLEATED RED BLOOD CELLS 0.2 % (0.0-0.19); RED BLOOD CELL COUNT(AUTO) 3.1 MIL/uL (4.00-5.50); RED CELL DISTRIBUTION WIDTH 15.3 % (11.0-15.5); WHITE BLOOD COUNT (AUTO) 15.5 K/uL (4.8-10.8)
[2024-03-15 05:45] LABS: CREATININE 0.7 mg/dL (0.5-1.0); POTASSIUM 4.3 mmol/L (3.5-5.1)
--- NOTE | 2024-03-15 09:05 | PN ---
[facility] PROGRESS NOTE Date of Service: Mar 15, 2024 Time of Service: 09:01 SUBJECTIVE: [ 48-year-old female admitted for shortness of breaths secondary to pneumonia. Patient was hypoxic when she arrived in the ED. She is currently on 2 L via nasal cannula with saturation at 96%. Patient is immunocompromised due to history of breast cancer to the left side and currently on chemotherapy. We have consulted boat tester and Infectious Disease for further recommendations. Patient was evaluated in room 331, she continues to be oxygen dependent, currently saturating 96% on2 L via nasal cannula. She is afebrile, [place] [id number] [place]. We will continue to wean off oxygen. Continue with IV antibiotics. Encouraged incentive spirometer. REVIEW OF SYSTEMS CONSTITUTIONAL: Positive chills and generalized weakness Denies fevers, night sweats. No unintentional weight loss reported. NEUROLOGICAL: Denies headache, amaurosis fugax, motor weakness, sensory deficit, vertigo/spinning sensation, gait abnormalities, or tremors. ENT: Positive sore throat No hearing loss, otalgia, otorrhea, rhinitis, rhinorrhea, hoarseness, CARDIOVASCULAR: Denies any exertional angina, dyspnea on exertion, orthopnea, paroxysmal nocturnal dyspnea, palpitations, life-threatening arrhythmias, claudication. PULMONARY: Positive shortness of breath with productive cough Denies hemopt ysis, pleuritic chest pain. SLEEP: Denies morning headaches, daytime somnolence or napping. Denies di fficulty falling asleep, staying asleep, waking from sleep. Denies knowledge of snoring. GASTROINTESTINAL: Complained of Nausea vomiting and diarrhea Denies any type of dysphagia to either liquids or solids. Denies nausea, vomiting, pyrosis, early satiety, abdominal pain, diarrhea, constipation, or changes in stool consistency or caliber. Denies coffee-ground emesis, hematemesis, hematochezia, or melanotic stools. GENITOURINARY: Denies frequency, urgency, nocturia, hematuria or incontinence (Storage/Irritative symptoms.) Low urinary stream, straining to void, urinary intermittency or hesitancy, splitting of the voiding stream, terminal dribbling. ENDOCRINOLOGIC: Denies polyuria, polydipsia, polyphagia or heat/cold intolerances. HEMATOLOGIC: Denies thrombophilia/previous clots, or coagulopathy/bleeding disorders. ONCOLOGIC: Denies personal history of malignancy. DERMATOLOGIC: Denies rashes or pruritus. PSYCHIATRIC: Denies any suicidal or homicidal ideation. Denies hallucinations. PHYSICAL EXAM GENERAL APPEARANCE: The patient is awake, alert, and oriented, in no acute cardiopulmonary distress. NEUROLOGICAL: Cranial nerves II-XII grossly intact. Motor is 5/5 in bilateral upper and lower extremities proximal to distal. No sensory deficits. HEENT: Face is symmetric. Pupils are equal and reactive. Extraocular movements are intact. NECK: Supple. No JVD. No thyromegaly. No submental, submandibular, pre- /postauricular, occipital or supraclavicular lymphadenopathy. CHEST: Normal chest expansion. No Telemetry. LUNGS: Tachypneic Absence of any rales, rhonchi or any wheezing. CARDIOVASCULAR: Tachycardic S1 and S2 normal. No appreciable rubs, murmurs or gallops. ABDOMEN: Soft, nontender, and nondistended. There is no rebound, voluntary guarding, or rigidity. : Deferred. No Davis. EXTREMITIES: Non-edematous and not cyanotic. No clubbing. Good capillary refill. SKIN: No skin breakdown. Vital Signs (last 8hr) Date Time Temp Pulse Resp B/P (MAP) Pulse Ox O2 Delivery O2 Flow Rate FiO2 03/15/24 08:00 97.9 92 16 125/82 96 Nasal Cannula 2.0 03/15/24 07:47 103 20 03/15/24 07:42 103 20 N/Cannula Low lpm 21 03/15/24 04:00 98.2 83 16 118/63 95 Nasal Cannula 2.0 LABS: Laboratory: Test 03/15/24 05:15 03/14/24 03:30 Range/Units White Blood Count 15.5 H 4.8-10.8 K/uL Red Blood Count 3.10 L 4.00-5.50 MIL/uL Hemoglobin 8.4 L 12.0-16.0 g/dL Hematocrit 27.2 L 36-48 % Mean Corpuscular Volume 87.7 79-99 fL Mean Corpuscular Hemoglobin 27.1 27.0-33.0 pg Mean Corpuscular Hemoglobin Concent 30.9 L 32.0-36.0 g/dL Red Cell Distribution Width 15.3 11.0-15.5 % Platelet Count 305 130-400 K/uL Mean Platelet Volume 9.2 7.5-10.5 fL Nucleated Red Blood Cells 0.2 H 0.0-0.19 % Sodium Level 137 136-145 mmol/L Potassium Level 4.3 3.5-5.1 mmol/L Chloride Level 103 101-111 mmol/L Carbon Dioxide Level 30 21-32 mmol/L Blood Urea Nitrogen 9 7-18 mg/dL Creatinine 0.7 0.5-1.0 mg/dL Glomerular Filtration Rate Calc 107 >90 mL/min Random Glucose 107 H 70-105 mg/dL Total Calcium 8.8 8.5-10.1 mg/dL Total Bilirubin 0.5 0.2-1.0 mg/dL Aspartate Amino Transf (AST/SGOT) 12 10-37 U/L Alanine Aminotransferase (ALT/SGPT) 15 12-78 U/L Alkaline Phosphatase 98 50-136 U/L Total Protein 5.7 L 6.0-8.3 g/dL Albumin 2.2 L 3.5-5.0 g/dL Procalcitonin 0.25 0.05-0.5 ng/mL Current Medications Medications (Trade) Dose Ordered Sig/Marisol Route PRN Reason Start Time Stop Time Status Last Admin Dose Admin Acetaminophen (TYLenol 325MG TAB) 650 mg Q4H PRN PO MILD PAIN (1-3) 03/11/24 03:00 04/10/24 02:59 Acetaminophen (TYLenol 325MG TAB) 650 mg Q6H PRN PO TEMPERATURE GREATER THAN 101.5 03/11/24 03:00 04/10/24 02:59 03/11/24 04:16 650 MG Acetaminophen/ Hydrocodone Bitart (NORco 5/325MG) 1 tab Q4H PRN PO MODERATE PAIN (4-6) 03/11/24 03:00 03/16/24 02:59 Albuterol (DUOneb) 1 udvial [id number] IH 03/11/24 06:00 03/11/24 09:24 DC 03/11/24 06:56 1 UDVIAL Amoxicillin/ Clavulanate Potassium (Augmentin 875-125 Tablet) 1 each Q12H PO 03/10/24 23:00 03/10/24 23:25 DC Budesonide (Pulmicort 0.5 Mg/2ml) 0.5 mg BID IH 03/11/24 09:00 03/12/24 11:57 DC 03/12/24 07:21 0.5 MG Budesonide (Pulmicort 0.5 Mg/2ml) 0.5 mg BIDRESP IH 03/12/24 18:00 04/10/24 08:59 03/15/24 07:40 0.5 MG Cefepime HCl (MAXipime 1 GM vial) 1 gm Q8H IVPB 03/10/24 23:30 03/11/24 02:56 DC Cefepime HCl (MAXipime 1 GM vial) 1 gm Q8H IVPB 03/11/24 03:00 03/21/24 02:59 03/15/24 03:05 1 GM Doxycycline Hyclate (Doxycycline Hyclate) 100 mg BID PO 03/12/24 21:00 03/22/24 20:59 03/14/24 21:10 100 MG Enoxaparin Sodium (Lovenox) 40 mg DAILY SQ 03/11/24 09:00 04/10/24 08:59 03/14/24 09:29 40 MG Famotidine (Pepcid 20mg Tab) 20 mg BID PO 03/11/24 09:00 04/10/24 08:59 03/14/24 21:10 20 MG Guaifenesin/ Dextromethorphan (RobiTUSSin DM 200/20MG 10ML) 10 ml Q4H PRN PO COUGH 03/11/24 03:00 04/10/24 02:59 Ipratropium [place] (AtrovENT UD) 0.5 mg Q6H IH 03/11/24 09:00 03/12/24 11:54 DC 03/12/24 11:49 0.5 MG Ipratropium [place] (AtrovENT UD) 0.5 mg [id number] IH 03/12/24 18:00 04/10/24 08:59 03/15/24 07:40 0.5 MG Levothyroxine Sodium (SYNTHroid 50MCG TAB) 50 mcg SYN PO 03/14/24 06:30 04/13/24 06:29 03/15/24 05:46 50 MCG Magnesium Sulfate 50 ml @ 0 mls/hr PROTOCOL PRN IV MAGNESIUM PROTOCOL 03/12/24 03:30 04/11/24 03:29 Ondansetron HCl (zoFRAN 4MG INJ) 4 mg Q6H PRN IV NAUSEA/VOMITING 03/11/24 03:00 04/10/24 02:59 Potassium Chloride 100 ml @ 100 mls/hr AD PRN IV POTASSIUM PROTOCOL 03/13/24 18:00 04/12/24 17:59 Potassium Chloride (K-Dur/Klor-Con 20meq) 20 meq AD PRN PO POTASSIUM PROTOCOL 03/13/24 18:00 04/12/24 17:59 03/13/24 23:17 20 MEQ Potassium Chloride (KCl 10% Elixir 20meq/15ml) 20 meq AD PRN PO POTASSIUM PROTOCOL 03/13/24 18:00 04/12/24 17:59 Vancomycin HCl 250 ml @ 125 mls/hr ONCE IV 03/11/24 03:00 03/11/24 04:59 DC Vancomycin HCl 250 ml @ 125 mls/hr Q12H IV 03/11/24 15:00 03/11/24 09:07 DC Vancomycin HCl (Vancomycin Protocol) 1 each AD IV 03/11/24 03:00 03/11/24 03:09 DC DIAGNOSTICS / RADIOLOGY: [ ] ASSESSMENT: Acute respiratory failure with hypoxia POA Sirs with organ dysfunction ruled out POA Acute sepsis on admission without septic shock, POA Bilateral community-acquired pneumonia with Streptococcus bacteria, POA Suspected pneumonia with left pleural effusion, ruled in POA Streptococcus pharyngitis, POA Positive strep throat POA Hypokalemia POA Acute anemia POA Hypothyroidism POA Hypertension POA Diabetes POA History of metastatic breast cancer with recent chemotherapy POA PLAN: Patient will continued to be admitted with telemetry Patient will continue current diet, so far tolerated Appreciate recommendations from Infectious Disease, continue with cefepime and doxycycline We will continue with famotidine 20 mg IV b.i.d. for GI prophylaxis We will continue to replace electrolytes as needed per protocol We continue sliding scale insulin per protocol with hypoglycemia protocol Continue oxygen supplementation to keep saturation above 92% Continue DuoNeb treatment every 4 hours for shortness of breaths Appreciate boat tester recommendation C/w oxygen supplementation, keep O2 sat 92%, will try to titrate and wean her off oxygen Continue IS We will check labs in a.m. Case was seen and examined with Dr. Tripathi, above plan was formulated Further recommendations to follow depending upon hospitalization course ATTESTATION BY PHYSICIAN I have seen and examined the patient. I reviewed the documentation, medical decision making, and treatment plan as noted by the mid-level provider above. I agree with the findings and plan of care. MALACHI TRIPATHI MD, JANICE [facility] Mar 15, 2024 09:05
--- NOTE | 2024-03-15 16:27 | PN ---
[facility] PROGRESS NOTE Date Patient Seen: Mar 15, 2024 Time of Visit: 12:20 Supervising Physician: KB URENA MD Outpatient Specialists: MD MCMAHAN PROBLEM LIST: Acute sepsis on admission without septic shock Bilateral community acquired pneumonia with Streptococcus bacteria and Haemophilus influenza Streptococcus pharyngitis Immunocompromised status on admission Metastatic breast cancer on active chemotherapy Hypertension Type 2 diabetes mellitus Morbid obesity, BMI 43.2 Hypothyroidism Adult failure to thrive INTERVAL HISTORY: Patient is seen and examined,not in distress,no fever chill, nausea or vomiting still on oxygen via [place], patient might need home oxygen , she was found with Haemophilus Influenza in the sputum as well bedside been streptoccocal positive she will continue with antibiotic therapy. 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 Pertinent positives mentioned above. Otherwise negative. PHYSICAL EXAM: GENERAL: alert, weak, awake oriented x 3 HEENT: EOMI, Sclera non icteric, moist mucosa NECK: Supple, no JVD, trachea midline LUNGS: no wheezing, no crackles, no rhonchi HEART: Regular rate and rhythm. Normal S1 and S2, without murmurs ABD: Abdomen soft, nontender. Bowel sounds present EXT: No clubbing cyanosis or edema NEURO: Alert and oriented to person, follows commands Vital Signs (last 8hr) Date Time Temp Pulse Resp B/P (MAP) Pulse Ox O2 Delivery O2 Flow Rate FiO2 03/15/24 12:00 98.2 94 18 130/76 92 Nasal Cannula 2.0 03/15/24 11:37 78 20 03/15/24 09:10 96 Nasal Cannula* 2 28 LABS: Hematology Labs: Test 03/15/24 05:15 Range/Units White Blood Count 15.5 H 4.8-10.8 K/uL Red Blood Count 3.10 L 4.00-5.50 MIL/uL Hemoglobin 8.4 L 12.0-16.0 g/dL Hematocrit 27.2 L 36-48 % Mean Corpuscular Volume 87.7 79-99 fL Mean Corpuscular Hemoglobin 27.1 27.0-33.0 pg Mean Corpuscular Hemoglobin Concent 30.9 L 32.0-36.0 g/dL Red Cell Distribution Width 15.3 11.0-15.5 % Platelet Count 305 130-400 K/uL Mean Platelet Volume 9.2 7.5-10.5 fL Nucleated Red Blood Cells 0.2 H 0.0-0.19 % Chemistry Labs: Test 03/15/24 05:15 03/14/24 03:30 Range/Units Sodium Level 137 136-145 mmol/L Potassium Level 4.3 3.5-5.1 mmol/L Chloride Level 103 101-111 mmol/L Carbon Dioxide Level 30 21-32 mmol/L Blood Urea Nitrogen 9 7-18 mg/dL Creatinine 0.7 0.5-1.0 mg/dL Glomerular Filtration Rate Calc 107 >90 mL/min Random Glucose 107 H 70-105 mg/dL Total Calcium 8.8 8.5-10.1 mg/dL Total Bilirubin 0.5 0.2-1.0 mg/dL Aspartate Amino Transf (AST/SGOT) 12 10-37 U/L Alanine Aminotransferase (ALT/SGPT) 15 12-78 U/L Alkaline Phosphatase 98 50-136 U/L Total Protein 5.7 L 6.0-8.3 g/dL Albumin 2.2 L 3.5-5.0 g/dL Procalcitonin 0.25 0.05-0.5 ng/mL DIAGNOSTICS / RADIOLOGY RESULTS: [ ] PULMONARY PLAN: continue with O2 and maintain saturation at 88% or higher Incentive spirometry continue on IV antibiotics continue on airborne isolation nutritional support ORTHO/REHAB: Continue PT/OT as tolerated Prophylaxis: Continue GI and DVT prophylaxis Code Status: Full Resuscitation Disposition: per primar team ATTESTATION BY PHYSICIAN Documentation assistance provided by a scribe, information recorded by the scribe was done at my direction and has been reviewed and validated by me." KB ANDRE MD I personally scribed for KB ANDRE MD ([email or web address]) on 03/15/24 at 16:27. Electronically submitted by Darling Ledesma ([id number]). KB ANDRE MD Mar 15, 2024 16:27
[2024-03-16] VITALS (14 sets, daily range): BP systolic 111–130; BP diastolic 61–79; PULSE 78–115; RESP 18–22; TEMP 97.7–98.7; O2SAT 88–96
[2024-03-16 04:09] LABS: HEMATOCRIT 27.8 % (36-48); MEAN CORPUSCULAR HEMOGLOBIN 26.8 pg (27.0-33.0); MEAN CORPUSCULAR HGB CONC 30.6 g/dL (32.0-36.0); MEAN CORPUSCULAR VOLUME 87.7 fL (79-99); NUCLEATED RED BLOOD CELLS 0.4 % (0.0-0.19); RED BLOOD CELL COUNT(AUTO) 3.17 MIL/uL (4.00-5.50); RED CELL DISTRIBUTION WIDTH 15.2 % (11.0-15.5); WHITE BLOOD COUNT (AUTO) 13.4 K/uL (4.8-10.8)
[2024-03-16 04:30] LABS: CREATININE 0.6 mg/dL (0.5-1.0); POTASSIUM 4.1 mmol/L (3.5-5.1)
--- NOTE | 2024-03-16 09:53 | PN ---
[facility] PROGRESS NOTE Date of Service: Mar 16, 2024 Time of Service: 09:49 SUBJECTIVE: [ 48-year-old female admitted for shortness of breaths secondary to pneumonia. Patient was hypoxic when she arrived in the ED. She is currently on 2 L via nasal cannula with saturation at 96%. Patient is immunocompromised due to history of breast cancer to the left side and currently on chemotherapy. We have consulted supervisor cutting department and Infectious Disease for further recommendations. Patient was evaluated in room 331, she continues to be oxygen dependent, currently saturating 96% on2 L via nasal cannula. She is afebrile, [place] [id number] today. We will continue to wean off oxygen. Continue with IV antibiotics. Encouraged incentive spirometer. 03/16/24 patient is seen and examined with , reviewed chart. Leukocytosis trending down. patient is sitting on the edge of the bed with nasal cannula L. We will get a 6 minute walk. We will wait for supervisor cutting department's recommendations on duration of antibiotics 1400 patient failed 6 min walk: saturation 88% case management was made aware. REVIEW OF SYSTEMS CONSTITUTIONAL: Positive chills and generalized weakness Denies fevers, night sweats. No unintentional weight loss reported. NEUROLOGICAL: Denies headache, amaurosis fugax, motor weakness, sensory defi cit, vertigo/spinning sensation, gait abnormalities, or tremors. ENT: Positive sore throat No hearing loss, otalgia, otorrhea, rhinitis, rhinorrhea, hoarseness, CARDIOVASCULAR: Denies any exertional angina, dyspnea on exertion, orthopnea, paroxysmal nocturnal dyspnea, palpitations, life-threatening arrhythmias, claudication. PULMONARY: Positive shortness of breath with productive cough Denies hemoptysis, pleuritic chest pain. SLEEP: Denies morning headaches, daytime somnolence or napping. Denies difficulty falling asleep, staying asleep, waking from sleep. Denies knowledge of snoring. GASTROINTESTINAL: Complained of Nausea vomiting and diarrhea Denies any type of dysphagia to either liquids or solids. Denies nausea, vomiting, pyrosis, early satiety, abdominal pain, diarrhea, constipation, or changes in stool consistency or caliber. Denies coffee-ground emesis, hematemesis, hematochezia, or melanotic stools. GENITOURINARY: Denies frequency, urgency, nocturia, hematuria or incontinence (Storage/Irritative symptoms.) Low urinary stream, straining to void, urinary intermittency or hesitancy, splitting of the voiding stream, terminal dribbling. ENDOCRINOLOGIC: Denies polyuria, polydipsia, polyphagia or heat/cold intolerances. HEMATOLOGIC: Denies thrombophilia/previous clots, or coagulopathy/bleeding disorders. ONCOLOGIC: Denies personal history of malignancy. DERMATOLOGIC: Denies rashes or pruritus. PSYCHIATRIC: Denies any suicidal or homicidal ideation. Denies hallucinations. PHYSICAL EXAM GENERAL APPEARANCE: The patient is awake, alert, and oriented, in no acute cardiopulmonary distress. NEUROLOGICAL: Cranial nerves II-XII grossly intact. Motor is 5/5 in bilateral upper and lower extremities proximal to distal. No sensory deficits. HEENT: Face is symmetric. Pupils are equal and reactive. Extraocular movements are intact. NECK: Supple. No JVD. No thyromegaly. No submental, submandibular, pre- /postauricular, occipital or supraclavicular lymphadenopathy. CHEST: Normal chest expansion. No Telemetry. LUNGS: Tachypneic Absence of any rales, rhonchi or any wheezing. CARDIOVASCULAR: Tachycardic S1 and S2 normal. No appreciable rubs, murmurs or gallops. ABDOMEN: Soft, nontender, and nondistended. There is no rebound, voluntary guarding, or rigidity. : Deferred. No Davis. EXTREMITIES: Non-edematous and not cyanotic. No clubbing. Good capillary refill. SKIN: No skin breakdown. Vital Signs (last 8hr) Date Time Temp Pulse Resp B/P (MAP) Pulse Ox O2 Delivery O2 Flow Rate FiO2 03/16/24 07:45 97.7 88 18 125/79 96 Nasal Cannula 2.0 03/16/24 07:20 94 20 N/Cannula Low lpm 2.0 28 03/16/24 07:16 84 20 03/16/24 04:00 97.9 78 18 111/74 95 Nasal Cannula 2.0 LABS: Laboratory: Test 03/16/24 03:26 Range/Units White Blood Count 13.4 H 4.8-10.8 K/uL Red Blood Count 3.17 L 4.00-5.50 MIL/uL Hemoglobin 8.5 L 12.0-16.0 g/dL Hematocrit 27.8 L 36-48 % Mean Corpuscular Volume 87.7 79-99 fL Mean Corpuscular Hemoglobin 26.8 L 27.0-33.0 pg Mean Corpuscular Hemoglobin Concent 30.6 L 32.0-36.0 g/dL Red Cell Distribution Width 15.2 11.0-15.5 % Platelet Count 340 130-400 K/uL Mean Platelet Volume 9.4 7.5-10.5 fL Nucleated Red Blood Cells 0.4 H 0.0-0.19 % Sodium Level 138 136-145 mmol/L Potassium Level 4.1 3.5-5.1 mmol/L Chloride Level 102 101-111 mmol/L Carbon Dioxide Level 30 21-32 mmol/L Blood Urea Nitrogen 9 7-18 mg/dL Creatinine 0.6 0.5-1.0 mg/dL Glomerular Filtration Rate Calc 111 >90 mL/min Random Glucose 98 70-105 mg/dL Total Calcium 9.0 8.5-10.1 mg/dL Current Medications Medications (Trade) Dose Ordered Sig/Marisol Route PRN Reason Start Time Stop Time Status Last Admin Dose Admin Acetaminophen (TYLenol 325MG TAB) 650 mg Q4H PRN PO MILD PAIN (1-3) 03/11/24 03:00 04/10/24 02:59 Acetaminophen (TYLenol 325MG TAB) 650 mg Q6H PRN PO TEMPERATURE GREATER THAN 101.5 03/11/24 03:00 04/10/24 02:59 03/11/24 04:16 650 MG Acetaminophen/ Hydrocodone Bitart (NORco 5/325MG) 1 tab Q4H PRN PO MODERATE PAIN (4-6) 03/11/24 03:00 03/16/24 02:59 DC Albuterol (DUOneb) 1 udvial [id number] 03/11/24 06:00 03/11/24 09:24 DC 03/11/24 06:56 1 UDVIAL Amoxicillin/ Clavulanate Potassium (Augmentin 875-125 Tablet) 1 each Q12H PO 03/10/24 23:00 03/10/24 23:25 DC Budesonide (Pulmicort 0.5 Mg/2ml) 0.5 mg BID 03/11/24 09:00 03/12/24 11:57 DC 03/12/24 07:21 0.5 MG Budesonide (Pulmicort 0.5 Mg/2ml) 0.5 mg BIDRESP IH 03/12/24 18:00 04/10/24 08:59 03/16/24 07:16 0.5 MG Cefepime HCl (MAXipime 1 GM vial) 1 gm Q8H IVPB 03/10/24 23:30 03/11/24 02:56 DC Cefepime HCl (MAXipime 1 GM vial) 1 gm Q8H IVPB 03/11/24 03:00 03/21/24 02:59 03/16/24 03:18 1 GM Doxycycline Hyclate (Doxycycline Hyclate) 100 mg BID PO 03/12/24 21:00 03/22/24 20:59 03/16/24 09:29 100 MG Enoxaparin Sodium (Lovenox) 40 mg DAILY SQ 03/11/24 09:00 04/10/24 08:59 03/16/24 09:30 40 MG Famotidine (Pepcid 20mg Tab) 20 mg BID PO 03/11/24 09:00 04/10/24 08:59 03/16/24 09:29 20 MG Guaifenesin/ Dextromethorphan (RobiTUSSin DM 200/20MG 10ML) 10 ml Q4H PRN PO COUGH 03/11/24 03:00 04/10/24 02:59 Ipratropium [place] (AtrovENT UD) 0.5 mg Q6H IH 03/11/24 09:00 03/12/24 11:54 DC 03/12/24 11:49 0.5 MG Ipratropium [place] (AtrovENT UD) 0.5 mg [id number] 03/12/24 18:00 04/10/24 08:59 03/16/24 07:15 0.5 MG Levothyroxine Sodium (SYNTHroid 50MCG TAB) 50 mcg SYN PO 03/14/24 06:30 04/13/24 06:29 03/16/24 05:49 50 MCG Magnesium Sulfate 50 ml @ 0 mls/hr PROTOCOL PRN IV MAGNESIUM PROTOCOL 03/12/24 03:30 04/11/24 03:29 Ondansetron HCl (zoFRAN 4MG INJ) 4 mg Q6H PRN IV NAUSEA/VOMITING 03/11/24 03:00 04/10/24 02:59 Potassium Chloride 100 ml @ 100 mls/hr AD PRN IV POTASSIUM PROTOCOL 03/13/24 18:00 04/12/24 17:59 Potassium Chloride (K-Dur/Klor-Con 20meq) 20 meq AD PRN PO POTASSIUM PROTOCOL 03/13/24 18:00 04/12/24 17:59 03/13/24 23:17 20 MEQ Potassium Chloride (KCl 10% Elixir 20meq/15ml) 20 meq AD PRN PO POTASSIUM PROTOCOL 03/13/24 18:00 04/12/24 17:59 Vancomycin HCl 250 ml @ 125 mls/hr ONCE IV 03/11/24 03:00 03/11/24 04:59 DC Vancomycin HCl 250 ml @ 125 mls/hr Q12H IV 03/11/24 15:00 03/11/24 09:07 DC Vancomycin HCl (Vancomycin Protocol) 1 each AD IV 03/11/24 03:00 03/11/24 03:09 DC DIAGNOSTICS / RADIOLOGY: [ ] ASSESSMENT: Acute respiratory failure with hypoxia POA Sirs with organ dysfunction ruled out POA Acute sepsis on admission without septic shock, POA Bilateral community-acquired pneumonia with Streptococcus bacteria, POA Suspected pneumonia with left pleural effusion, ruled in POA Streptococcus pharyngitis, POA Positive strep throat POA Hypokalemia POA Acute anemia POA Hypothyroidism POA Hypertension POA Diabetes POA History of metastatic breast cancer with recent chemotherapy POA Immunosuppressive due to history of cancer and chemotherapy POA PLAN: Patient will continued to be admitted with telemetry Patient will continue current diet, so far tolerated Appreciate recommendations from Infectious Disease, continue with cefepime and doxycycline We will continue with famotidine 20 mg IV b.i.d. for GI prophylaxis We will continue to replace electrolytes as needed per protocol We continue sliding scale insulin per protocol with hypoglycemia protocol Continue oxygen supplementation to keep saturation above 92% Continue DuoNeb treatment every 4 hours for shortness of breaths Appreciate supervisor cutting department recommendation C/w oxygen supplementation, keep O2 sat 92%, will try to titrate and wean her off oxygen 6 minute walk Continue IS We will check labs in a.m. Case was seen and examined with above plan was formulated Further recommendations to follow depending upon hospitalization course ATTESTATION BY PHYSICIAN I have seen and examined the patient. I reviewed the documentation, medical decision making, and treatment plan as noted by the mid-level provider above. I agree with the findings and plan of care. Lisa Almanzar MD, ELIZABETH NP Mar 16, 2024 09:53
--- NOTE | 2024-03-16 15:55 | PN ---
INFECTIOUS DISEASE PROGRESS NOTE Date of Service: Mar 16, 2024 SUBJECTIVE: This is a48 year old female patient who was seen and examined at bedside in room 331. Patient is awake, alert and oriented x3. Final sputum culture results came back positive for Haemophilus parainfluenza IV. Patient remains on cefepime and doxycycline. Patient is currently on oxygen via nasal cannula2 liters/minute. Patient failed a 6 minutes walk. Case management to evaluate for home oxygen set up. We will continue to monitor patient. PHYSICAL EXAM EYES: Anicteric. Pupils equal and reactive. HENT: No oral thrush seen, moist Oral mucosa. NECK: Supple, no JVD or thyromegaly. LUNGS: Good air entry. No rales, no rhonchi. Oxygen via nasal cannula CARDIOVASCULAR: S1, S2 regular. No murmur heard. ABDOMEN: Soft, non tender, bowel sounds present, no organomegaly. CENTRAL NERVOUS SYSTEM: Awake, alert, oriented x 3. SKIN: No rashes, no swelling. LYMPHATICS: No peripheral lymphadenopathy. MUSCULOSKELETAL: No joint swelling, erythema or tenderness. EXTREMITIES: No cyanosis or clubbing. BACK: No deformity, no pressure ulcer. GENITOURINARY: No dysuria or hematuria. Vital Sign (Last 12 Hours) 03/16/24 03/16/24 03/16/24 03/16/24 04:00 07:16 07:20 07:45 Temp 97.9 97.7 Pulse 78 84 94 88 Resp 18 20 20 18 B/P (MAP) 111/74 125/79 Pulse Ox 95 96 O2 Delivery Nasal Cannula N/Cannula Low lpm Nasal Cannula O2 Flow Rate 2.0 2.0 2.0 FiO2 28 03/16/24 03/16/24 03/16/24 10:43 11:45 12:00 Temp 97.9 Pulse 92 78 94 115 98 Resp 18 18 18 22 19 B/P (MAP) 130/61 Pulse Ox 95 O2 Delivery Nasal Cannula O2 Flow Rate 2.0 FiO2 21 21 28 Intake & Output (last 24hrs) 03/15/24 03/15/24 03/16/24 15:00 23:00 07:00 Intake Total 50.0 ml Balance 50.0 ml LABS: Laboratory: Test 03/16/24 03:26 Range/Units White Blood Count 13.4 H 4.8-10.8 K/uL Red Blood Count 3.17 L 4.00-5.50 MIL/uL Hemoglobin 8.5 L 12.0-16.0 g/dL Hematocrit 27.8 L 36-48 % Mean Corpuscular Volume 87.7 79-99 fL Mean Corpuscular Hemoglobin 26.8 L 27.0-33.0 pg Mean Corpuscular Hemoglobin Concent 30.6 L 32.0-36.0 g/dL Red Cell Distribution Width 15.2 11.0-15.5 % Platelet Count 340 130-400 K/uL Mean Platelet Volume 9.4 7.5-10.5 fL Nucleated Red Blood Cells 0.4 H 0.0-0.19 % Sodium Level 138 136-145 mmol/L Potassium Level 4.1 3.5-5.1 mmol/L Chloride Level 102 101-111 mmol/L Carbon Dioxide Level 30 21-32 mmol/L Blood Urea Nitrogen 9 7-18 mg/dL Creatinine 0.6 0.5-1.0 mg/dL Glomerular Filtration Rate Calc 111 >90 mL/min Random Glucose 98 70-105 mg/dL Total Calcium 9.0 8.5-10.1 mg/dL ASSESSMENT: Hypoxic history failure, requiring oxygen support. Multifocal pneumonia with Haemophilus Parainfluenzae IV. Sepsis. Urinary tract infection. Streptococcus infection. Metastatic breast cancer. Underlying immune suppression. Anemia. Failed 6 minute walk. PLAN: Continue on cefepime. Continue on doxycycline. Continue GI prophylaxis. Continue oxygen support. Continue on bronchodilators. Continue pain management. We will monitor electrolytes. Case management to evaluate for home O2 set up. This case was reviewed and discussed with my supervising physician and the above assessment and plan was formulated and agreed upon. ATTESTATION BY PHYSICIAN I have seen and examined the patient. I reviewed the documentation, medical decision making, and treatment plan as noted by the mid-level provider above. I agree with the findings and plan of care. JANENE BOTELLO MD, [facility] Mar 16, 2024 15:55
--- NOTE | 2024-03-16 21:24 | PN ---
[facility] PROGRESS NOTE Date Patient Seen: Mar 16, 2024 Time of Visit: 14:21 Supervising Physician: BRIDGETT DOBBINS MD Outpatient Specialists: MD MCMAHAN PROBLEM LIST: Acute sepsis on admission without septic shock Bilateral community acquired pneumonia with Streptococcus bacteria and Haemophilus influenza Streptococcus pharyngitis Immunocompromised status on admission Metastatic breast cancer on active chemotherapy Hypertension Type 2 diabetes mellitus Morbid obesity, BMI 43.2 Hypothyroidism Adult failure to thrive INTERVAL HISTORY: Patient is seen and examined,not in distress,no fever chill, nausea or vomiting still on oxygen via NC, she denies new complaints, tolerating her diet, she failed 6 minutes walk and plan is to be discharge with home oxygen she has been advised to follow up at the pulmonary clinic as an outpatient. REVIEW OF SYSTEMS: 12 point ROS reviewed with patient. Pertinent positives mentioned above. Otherwise negative. PHYSICAL EXAM: GENERAL: alert, weak, awake oriented x 3 HEENT: EOMI, Sclera non icteric, moist mucosa NECK: Supple, no JVD, trachea midline LUNGS: no wheezing, no crackles, no rhonchi HEART: Regular rate and rhythm. Normal S1 and S2, without murmurs ABD: Abdomen soft, nontender. Bowel sounds present EXT: No clubbing cyanosis or edema NEURO: Alert and oriented to person, follows commands Vital Signs (last 8hr) Date Time Temp Pulse Resp B/P (MAP) Pulse Ox O2 Delivery O2 Flow Rate FiO2 03/16/24 20:26 98.4 89 18 120/64 95 Nasal Cannula 2.0 03/16/24 20:00 96 Nasal Cannula* 2 28 03/16/24 19:02 90 18 03/16/24 19:02 90 20 N/Cannula Low lpm 2.0 28 03/16/24 16:00 98.6 85 18 125/77 94 Nasal Cannula 2.0 LABS: Hematology Labs: Test 03/16/24 03:26 Range/Units White Blood Count 13.4 H 4.8-10.8 K/uL Red Blood Count 3.17 L 4.00-5.50 MIL/uL Hemoglobin 8.5 L 12.0-16.0 g/dL Hematocrit 27.8 L 36-48 % Mean Corpuscular Volume 87.7 79-99 fL Mean Corpuscular Hemoglobin 26.8 L 27.0-33.0 pg Mean Corpuscular Hemoglobin Concent 30.6 L 32.0-36.0 g/dL Red Cell Distribution Width 15.2 11.0-15.5 % Platelet Count 340 130-400 K/uL Mean Platelet Volume 9.4 7.5-10.5 fL Nucleated Red Blood Cells 0.4 H 0.0-0.19 % Chemistry Labs: Test 03/16/24 03:26 Range/Units Sodium Level 138 136-145 mmol/L Potassium Level 4.1 3.5-5.1 mmol/L Chloride Level 102 101-111 mmol/L Carbon Dioxide Level 30 21-32 mmol/L Blood Urea Nitrogen 9 7-18 mg/dL Creatinine 0.6 0.5-1.0 mg/dL Glomerular Filtration Rate Calc 111 >90 mL/min Random Glucose 98 70-105 mg/dL Total Calcium 9.0 8.5-10.1 mg/dL DIAGNOSTICS / RADIOLOGY RESULTS: [ ] PLAN; Discharge home with home oxygen discharge per pcp PULMONARY PLAN: continue with O2 and maintain saturation at 88% or higher Incentive spirometry ORTHO/REHAB: Continue PT/OT as tolerated Prophylaxis: Continue GI and DVT prophylaxis Code Status: Full Resuscitation Disposition: per primar team ATTESTATION BY PHYSICIAN Documentation assistance provided by a scribe, information recorded by the scribe was done at my direction and has been reviewed and validated by me." BRIDGETT DOBBINS MD I personally scribed for MU URIAS MD ([email or web address]) on 03/16/24 at 21:24. Electronically submitted by Darling Ledesma ([email or web address]). MU URIAS MD Mar 16, 2024 21:24
[2024-03-17] VITALS (8 sets, daily range): BP systolic 107–117; BP diastolic 64–82; PULSE 75–86; RESP 18–20; TEMP 98.3–98.5; O2SAT 92–98
--- NOTE | 2024-03-17 00:19 | PN ---
INFECTIOUS DISEASE FOLLOWUP NOTE DATE OF SERVICE: 03/15/2024 SUBJECTIVE: The patient is seen. No fever or chills. No nausea or vomiting. Still has some cough. No hemoptysis or pleuritic pain. Denied depression or suicidal ideation. No heat or cold intolerance. No rashes or itchiness. PHYSICAL EXAMINATION: VITAL SIGNS: Temperature 97.6. EYES: No icterus. Pupils equal and reactive. HENT: No oral thrush seen. Moist oral mucosa. NECK: Supple, no JVD or thyromegaly. LUNGS: Good air entry. No rales, no rhonchi. CARDIOVASCULAR: S1, S2, regular. No murmur heard. ABDOMEN: Full, soft, nontender. Bowel sounds present. CENTRAL NERVOUS SYSTEM: Awake, alert and oriented x 3. No focal deficits. SKIN: No rashes, no itchiness. LYMPHATIC: No peripheral lymphadenopathy. HEMATOLOGIC: No bleeding or petechial lesion seen. MUSCULOSKELETAL: No joint swelling, erythema or tenderness. ASSESSMENT: A 48-year-old female with multiple problems, which include: * Sepsis. * Pneumonia. * Metastatic left breast cancer. * Hypoxic respiratory failure. * Underlying immunosuppression. PLAN: * Continue nutritional support. * Continue GI prophylaxis. * Continue doxycycline. * Continue cefepime. * Continue bronchodilator. * Continue oxygen. * Monitor electrolytes. TID: [id number] RECEIPT: [id number]
[2024-03-17] MEDS ORDERED: FAMO20TA8 PO (14:18)
[2024-03-17] MEDS ORDERED: AMOX500C2 PO (14:18)
[2024-03-17] MEDS ORDERED: IPRNEB IH (14:18)
[2024-03-17] MEDS ORDERED: BUDE0.5A3 IH (14:18)
[2024-03-17] MEDS ORDERED: DOXY100T2 PO (14:18)
--- NOTE | 2024-03-17 14:24 | DS ---
Discharge Summary Hospital Course Summary: DATE OF ADMISSION:[03/11/2024] DATE OF DISCHARGE:[03/17/2024] DISPOSITION:[Home] CONDITION:[Medically stable] CONSULTANTS:[Id, detective precinct] FOLLOW UP APPOINTMENTS:[PCP 2 to 3 days. ID within one week. [employer] Consultant within one week] PROCEDURES:[None] IMAGING: report attached to summary MICROBIOLOGY: report attached to summary ACTIVITY:[Independent] HOME MEDICATIONS: see med recc NEW MEDICATIONS:[] See med rec EMERGENCY INSTRUCTIONS: The patient was instructed to present to the nearest Emergency departmentr or call 911 once their symptoms will return or worsen Typesetter Apprentice(s): 48-year-old female admitted for shortness of breaths secondary to pneumonia. Patient was hypoxic when she arrived in the ED. She is currently on 2 L via nasal cannula with saturation at 96%. Patient is immunocompromised due to history of breast cancer to the left side and currently on chemotherapy. We have consulted detective precinct and Infectious Disease for further recommendations. Patient was evaluated in room 331, she continues to be oxygen dependent, curr ently saturating 96% on2 L via nasal cannula. She is afebrile, [place] [id number] [place]. We will continue to wean off oxygen. Continue with IV antibiotics. Encouraged incentive spirometer. Throughout the hospitalization patient was evaluated by detective precinct and they recommended 6 minute walk. Patient did not passed 6 minute walk and required oxygen. Case management work with insurance and O2 to be delivered home. Patient was also evaluated by ID sputum was growing bacteria and patient was sent on amoxicillin 500 t.i.d. for seven days. Per detective precinct they would like to continue doxycycline for total 14 days. Patient was cleared by both consultants to be discharged home follow up with PCP in 2 to 3 days. ID within two weeks. [employer] Consultant within one week. Procedure(s): REVIEW OF SYSTEMS CONSTITUTIONAL: Denies any chills and generalized weakness Denies fevers, night sweats. No unintentional weight loss reported. NEUROLOGICAL: Denies headache, amaurosis fugax, motor weakness, sensory deficit, vertigo/spinning sensation, gait abnormalities, or tremors. ENT: Positive sore throat No hearing loss, otalgia, otorrhea, rhinitis, rh inorrhea, hoarseness, CARDIOVASCULAR: Denies any exertional angina, dyspnea on exertion, orthopnea, paroxysmal nocturnal dyspnea, palpitations, life-threatening arrhythmias, claudication. PULMONARY: Denies any shortness of breath Denies hemoptysis, pleuritic chest pain. SLEEP: Denies morning headaches, daytime somnolence or napping. Denies difficulty falling asleep, staying asleep, waking from sleep. Denies knowledge of snoring. GASTROINTESTINAL: Denies of Nausea vomiting and diarrhea Denies any type of dysphagia to either liquids or solids. Denies nausea, vomiting, pyrosis, early satiety, abdominal pain, diarrhea, constipation, or changes in stool consistency or caliber. Denies coffee-ground emesis, hematemesis, hematochezia, or melanotic stools. GENITOURINARY: Denies frequency, urgency, nocturia, hematuria or incontinence (Storage/Irritative symptoms.) Low urinary stream, straining to void, urinary intermittency or hesitancy, splitting of the voiding stream, terminal dribbling. ENDOCRINOLOGIC: Denies polyuria, polydipsia, polyphagia or heat/cold intolerances. HEMATOLOGIC: Denies thrombophilia/previous clots, or coagulopathy/bleeding disorders. ONCOLOGIC: Denies personal history of malignancy. DERMATOLOGIC: Denies rashes or pruritus. PSYCHIATRIC: Denies any suicidal or homicidal ideation. Denies hallucinations. PHYSICAL EXAM GENERAL APPEARANCE: The patient is awake, alert, and oriented, in no acute cardiopulmonary distress. NEUROLOGICAL: Cranial nerves II-XII grossly intact. Motor is 5/5 in bilateral upper and lower extremities proximal to distal. No sensory deficits. HEENT: Face is symmetric. Pupils are equal and reactive. Extraocular movements are intact. NECK: Supple. No JVD. No thyromegaly. No submental, submandibular, pre- /postauricular, occipital or supraclavicular lymphadenopathy. CHEST: Normal chest expansion. No Telemetry. LUNGS: Tachypneic Absence of any rales, rhonchi or any wheezing. CARDIOVASCULAR: S1 and S2 normal. No appreciable rubs, murmurs or gallops. ABDOMEN: Soft, nontender, and nondistended. There is no rebound, voluntary guarding, or rigidity. : Deferred. No Davis. EXTREMITIES: Non-edematous and not cyanotic. No clubbing. Good capillary refill. SKIN: No skin breakdown. Assessment/Plan: ASSESSMENT: Acute respiratory failure with hypoxia POA Sirs with organ dysfunction ruled out POA Acute sepsis on admission without septic shock, POA Bilateral community-acquired pneumonia with Streptococcus bacteria, POA Suspected pneumonia with left pleural effusion, ruled in POA Streptococcus pharyngitis, POA Positive strep throat POA Hypokalemia POA Acute anemia POA Hypothyroidism POA Hypertension POA Diabetes POA History of metastatic breast cancer with recent chemotherapy POA Immunosuppressive due to history of cancer and chemotherapy POA Home Medications: Reported Medications Levothyroxine Sodium (Synthroid 50 Mcg Tab) 50 Mcg Tablet, 1 TAB PO DAILY for 30 Days, #30 TAB 0 Refills 03/11/24 Time spent arranging discharge: 31-60 minutes ATTESTATION BY PHYSICIAN I have seen and examined the patient. I reviewed the documentation, medical decision making, and treatment plan as noted by the mid-level provider above. I agree with the findings and plan of care. Lisa Almanzar MD, [facility] Mar 17, 2024 14:24
--- NOTE | 2024-03-17 15:47 | PN ---
INFECTIOUS DISEASE PROGRESS NOTE Date of Service: Mar 17, 2024 SUBJECTIVE: This is a48 year old female patient who was seen and examined at bedside in room 331. Patient is awake, alert and oriented x 3. Home oxygen has been approved and patient is pending oxygen to be delivered so that she can be safely discharged to home. From Infectious Disease standpoint patient can be discharged on amoxicillin 500 mg p.o. t.i.d. x 7 days. PHYSICAL EXAM EYES: Anicteric. Pupils equal and reactive. HENT: No oral thrush seen, moist Oral mucosa. NECK: Supple, no JVD or thyromegaly. LUNGS: Good air entry. No rales, no rhonchi. Oxygen via nasal cannula CARDIOVASCULAR: S1, S2 regular. No murmur heard. ABDOMEN: Soft, non tender, bowel sounds present, no organomegaly. CENTRAL NERVOUS SYSTEM: Awake, alert, oriented x 3. SKIN: No rashes, no swelling. LYMPHATICS: No peripheral lymphadenopathy. MUSCULOSKELETAL: No joint swelling, erythema or tenderness. EXTREMITIES: No cyanosis or clubbing. BACK: No deformity, no pressure ulcer. GENITOURINARY: No dysuria or hematuria. Vital Sign (Last 12 Hours) 03/17/24 03/17/24 03/17/24 03/17/24 05:14 07:59 07:59 08:00 Temp 98.4 98.4 Pulse 81 81 81 75 Resp 18 20 18 18 B/P (MAP) 113/82 114/75 Pulse Ox 96 98 O2 Delivery Room Air N/Cannula Low lpm Nasal Cannula O2 Flow Rate 2.0 2.0 FiO2 28 03/17/24 03/17/24 03/17/24 11:25 11:25 12:00 Temp 98.2 Pulse 83 83 83 Resp 18 20 18 B/P (MAP) 116/64 Pulse Ox 90 O2 Delivery N/Cannula Low lpm Room Air O2 Flow Rate 2.0 FiO2 28 21 LABS: Laboratory: Test 03/16/24 03:26 Range/Units White Blood Count 13.4 H 4.8-10.8 K/uL Red Blood Count 3.17 L 4.00-5.50 MIL/uL Hemoglobin 8.5 L 12.0-16.0 g/dL Hematocrit 27.8 L 36-48 % Mean Corpuscular Volume 87.7 79-99 fL Mean Corpuscular Hemoglobin 26.8 L 27.0-33.0 pg Mean Corpuscular Hemoglobin Concent 30.6 L 32.0-36.0 g/dL Red Cell Distribution Width 15.2 11.0-15.5 % Platelet Count 340 130-400 K/uL Mean Platelet Volume 9.4 7.5-10.5 fL Nucleated Red Blood Cells 0.4 H 0.0-0.19 % Sodium Level 138 136-145 mmol/L Potassium Level 4.1 3.5-5.1 mmol/L Chloride Level 102 101-111 mmol/L Carbon Dioxide Level 30 21-32 mmol/L Blood Urea Nitrogen 9 7-18 mg/dL Creatinine 0.6 0.5-1.0 mg/dL Glomerular Filtration Rate Calc 111 >90 mL/min Random Glucose 98 70-105 mg/dL Total Calcium 9.0 8.5-10.1 mg/dL ASSESSMENT: Hypoxic history failure, requiring oxygen support. Multifocal pneumonia with Haemophilus Parainfluenzae IV. Sepsis. Urinary tract infection. Streptococcus infection. Metastatic breast cancer. Underlying immune suppression. Anemia. Failed 6 minute walk. PLAN: Home oxygen has been approved and patient is pending oxygen to be delivered to be discharged. From Infectious Disease standpoint patient can be discharged on amoxicillin 500 mg p.o. t.i.d. x 7 days. This case was reviewed and discussed with my supervising physician and the above assessment and plan was formulated and agreed upon. ATTESTATION BY PHYSICIAN I have seen and examined the patient. I reviewed the documentation, medical decision making, and treatment plan as noted by the mid-level provider above. I agree with the findings and plan of care. JANENE BOTELLO MD, [facility] Mar 17, 2024 15:47
[2024-03-17] MEDS ORDERED: LEVO50TA4 PO (16:43)
--- NOTE | 2024-03-17 23:50 | PN ---
[facility] PROGRESS NOTE Date Patient Seen: Mar 17, 2024 Time of Visit: 23:47 Supervising Physician: MU GLOVER MD Outpatient Specialists: MD MCMAHAN PROBLEM LIST: Acute sepsis on admission without septic shock Bilateral community acquired pneumonia with Streptococcus bacteria and Haemophilus influenza Streptococcus pharyngitis Immunocompromised status on admission Metastatic breast cancer on active chemotherapy Hypertension Type 2 diabetes mellitus Morbid obesity, BMI 43.2 Hypothyroidism Adult failure to thrive INTERVAL HISTORY: 03/17 Patient seen and evaluated She is doing better, no oxygen at rest and her O2 is 92% Patient is going home today and will go home with O2 Still having dyspnea on exertion No fevers, no chills Dry cough, no hemoptysis Good appetite REVIEW OF SYSTEMS: 12 point ROS reviewed with patient. Pertinent positives mentioned above. Otherwise negative. PHYSICAL EXAM: GENERAL: alert, weak, awake oriented x 3 HEENT: EOMI, Sclera non icteric, moist mucosa NECK: Supple, no JVD, trachea midline LUNGS: no wheezing, no crackles, no rhonchi HEART: Regular rate and rhythm. Normal S1 and S2, without murmurs ABD: Abdomen soft, nontender. Bowel sounds present EXT: No clubbing cyanosis or edema NEURO: Alert and oriented to person, follows commands Vital Signs (last 8hr) Date Time Temp Pulse Resp B/P (MAP) Pulse Ox O2 Delivery O2 Flow Rate FiO2 03/17/24 16:00 98.4 84 18 107/75 90 Room Air 21 LABS: Hematology Labs: Test 03/16/24 03:26 Range/Units White Blood Count 13.4 H 4.8-10.8 K/uL Red Blood Count 3.17 L 4.00-5.50 MIL/uL Hemoglobin 8.5 L 12.0-16.0 g/dL Hematocrit 27.8 L 36-48 % Mean Corpuscular Volume 87.7 79-99 fL Mean Corpuscular Hemoglobin 26.8 L 27.0-33.0 pg Mean Corpuscular Hemoglobin Concent 30.6 L 32.0-36.0 g/dL Red Cell Distribution Width 15.2 11.0-15.5 % Platelet Count 340 130-400 K/uL Mean Platelet Volume 9.4 7.5-10.5 fL Nucleated Red Blood Cells 0.4 H 0.0-0.19 % Chemistry Labs: Test 03/16/24 03:26 Range/Units Sodium Level 138 136-145 mmol/L Potassium Level 4.1 3.5-5.1 mmol/L Chloride Level 102 101-111 mmol/L Carbon Dioxide Level 30 21-32 mmol/L Blood Urea Nitrogen 9 7-18 mg/dL Creatinine 0.6 0.5-1.0 mg/dL Glomerular Filtration Rate Calc 111 >90 mL/min Random Glucose 98 70-105 mg/dL Total Calcium 9.0 8.5-10.1 mg/dL DIAGNOSTICS / RADIOLOGY RESULTS: [ ] PLAN; From pulmonary standpoint, patient may be discharged home with home O2 will follow up at pulmonary clinic in 10 days resume home medications continue on home O2 ATTESTATION BY PHYSICIAN The clinical note was scribed by Eusebio Broderick BSc on my behalf and I attest to the accuracy of the note Mu Glover MD I personally scribed for MU GLOVER MD ([email or web address]) on 03/17/24 at 23:50. Electronically submitted by Eusebio Broderick ([email or web address]). MU GLOVER MD Mar 17, 2024 23:50
== END 2024-03-17 18:10 | disposition home or self-care (01) | DRG 871 ==
LOC: EDH 21:11 → EDHIP 03-11 02:42 → 3AH 03-11 15:36
PROVIDERS: ADMIT Internal Medicine; ATTEND Internal Medicine
DX: A41.9 Sepsis, unspecified organism (principal); J15.69 Pneumonia due to other Gram-negative bacteria; J96.01 Acute respiratory failure with hypoxia; J90 Pleural effusion, not elsewhere classified; D84.9 Immunodeficiency, unspecified; N39.0 Urinary tract infection, site not specified; Z68.41 Body mass index [BMI] 40.0-44.9, adult; Z20.822 Contact with and (suspected) exposure to COVID-19; J02.0 Streptococcal pharyngitis; E87.6 Hypokalemia; D64.9 Anemia, unspecified; E03.9 Hypothyroidism, unspecified; I10 Essential (primary) hypertension; E11.9 Type 2 diabetes mellitus without complications; C50.919 Malignant neoplasm of unspecified site of unspecified female breast; E66.01 Morbid (severe) obesity due to excess calories; R62.7 Adult failure to thrive; R91.1 Solitary pulmonary nodule; C50.912 Malignant neoplasm of unspecified site of left female breast; Z83.3 Family history of diabetes mellitus; Z99.81 Dependence on supplemental oxygen
CPT/HCPCS: 36415; 71045; 71270; 80048; 80053; 81001; 82550; 83036; 83605; 83735; 84145; 84484; 85025; 85027; 86738; 87040; 87071; 87086; 87186; 87205; 87449; 87635; 87641; 87804; 87880; 93970; 94640; 94664; 94760; G0378; J0692; J1650; J3370; J7030; Q9967